=== PATIENT | female | born 1960 | race Caucasian/White ===

== ENCOUNTER 2016-12-18 09:23 | Inpatient (IN) | payer BC ==
[~2016-12-18] VITALS: Ht 152.4 cm; Wt 62.8 kg
--- NOTE | ~2016-12-18 | CON ---
PATIENT'S NAME: YVON ZIMMERMAN [facility] AGE: 56 Y [address] ROOM: [place] [address] LOCATION: [facility] ADMIT DATE: 12/18/2016 Consultation DISCHARGE DATE: FAMILY PHYSICIAN: Carlton Lopes MD ATTENDING PHYSICIAN: MADDISON AGUILAR DATE OF CONSULTATION: 12/18/2016 [facility] Nephrology Consultation. REASON FOR CONSULTATION: End-stage renal disease, on CCPD. HISTORY OF PRESENT ILLNESS: This is a 56-year-old female patient, who has a history of end-stage renal disease secondary to diabetic nephropathy, who is on CCPD as an outpatient. The patient did have a reported fall in December 02, 2016, in which she did sustain an injury to her pelvis. The patient has been following her care at [facility] and was found to have multiple fractures of the pelvis as well as sacrum. The patient has been having a hard time with pain control as an outpatient, and did present to the emergency room today secondary to her increasing pain within the pelvis as well as the right buttock area. The patient does have a history of end-stage renal disease, and was started on hemodialysis therapy in May 2016. She did transition to peritoneal dialysis in early 2016. At that time, her compliance with peritoneal dialysis has been questionable. Her recent adequacy was found to be 1 as well as a rising creatinine. The patient has been noncompliant with her education as well as her follow ups for her PD. Therefore, due to the patient's history of CCPD and end-stage renal disease, Dr. Adams has been asked to consult on her for management of her dialysis while she is hospitalized. ALLERGIES: NONE TO MEDICATION. MEDICATIONS: Current home medications include: 1. Levothyroxine 100 mcg daily. 2. Lasix 80 mg two tablets daily. 3. NovoLog FlexPen. 4. Aspirin 81 mg daily. 5. Combigan eye drops one drop ophthalmic twice a day. 6. Ocuvite one tablet daily. 7. Vitamin D3 of 2000 units daily. PATIENT'S NAME: YVON ZIMMERMAN [facility] AGE: 56 Y [address] ROOM: [address] [address] LOCATION: [facility] ADMIT DATE: 12/18/2016 Consultation DISCHARGE DATE: FAMILY PHYSICIAN: Carlton Lopes MD ATTENDING PHYSICIAN: MADDISON AGUILAR 8. Calcium carbonate/Mag oxide/zinc one tablet daily. 9. Amlodipine 5 mg daily. 10. Levemir 12 units subcutaneously every morning and 7 units subcutaneously every evening. 11. Renvela 1600 mg p.o. t.i.d. 12. Magnesium 250 mg p.o. daily. 13. Losartan 50 mg p.o. twice a day. 14. Percocet 5/325 one tablet p.o. q.4 h. p.r.n. pain. PAST MEDICAL HISTORY: As listed above including, 1. Type 1 diabetes, on insulin pump. 2. End-stage renal disease. 3. Diabetic nephropathy. 4. Hypothyroidism. 5. Renovascular hypertension. 6. Osteoporosis. FAMILY HISTORY: Reviewed and is noncontributory. There is no history of kidney disease or dialysis. SOCIAL HISTORY: The patient denies any smoking or alcohol use. Denies any illicit drug use. She does live with her family in [place]. She does continue to work despite dialysis. REVIEW OF SYSTEMS: GENERAL: Denies any new fevers, chills, or night sweats. EYES: No double vision or blurred vision. NOSE: No epistaxis or rhinorrhea. MOUTH: No gingival bleeding. THROAT: No sore throat, hoarseness, or cough. RESPIRATORY: Denies any wheezing or hemoptysis. CARDIOVASCULAR: Denies any chest pain or palpitations. GASTROINTESTINAL: Denies any nausea, vomiting, or diarrhea. She does complain of some loss of appetite. GENITOURINARY: Continues to make urine despite dialysis. MUSCULOSKELETAL: See HPI. NEUROLOGICAL: No new numbness or tingling in the upper or lower extremities. HEMATOLOGICAL: No bruising or easy bleeding. PSYCHIATRIC: Denies history of depression or anxiety. PHYSICAL EXAMINATION: VITAL SIGNS: Blood pressure is 156/71, heart rate 67, respirations 14, PATIENT'S NAME: YVON ZIMMERMAN [facility] AGE: 56 Y [address] ROOM: [address] [place] [id number] LOCATION: [facility] ADMIT DATE: 12/18/2016 Consultation DISCHARGE DATE: FAMILY PHYSICIAN: Carlton Lopes MD ATTENDING PHYSICIAN: MADDISON AGUILAR temperature is 98.1, and saturations are 97% on room air. GENERAL: On exam, this is an alert and oriented, white female, who is in no acute distress. HEENT: Head: Normocephalic and atraumatic. Eyes: Pupils are equal and react briskly to light and accommodation. Nose is midline. Mouth: No gingival bleeding. Throat is without lymphadenopathy or carotid bruits. NECK: Soft and supple. CARDIOVASCULAR: Regular rate and rhythm with no appreciable murmurs, rubs, or thrills. ABDOMEN: Soft, nontender, and nondistended. Bowel sounds are positive. RESPIRATORY: Lungs sounds are clear to auscultation anterior and posterior. The patient is on room air. EXTREMITIES: Show no signs of peripheral edema, clubbing, or cyanosis. NEUROLOGICAL: Cranial nerves 2 through 12 are grossly intact. GENITOURINARY: A Novoa catheter is present. LABORATORY DATA AND IMAGING DATA: Sodium 130, potassium 5.6, chloride 94, CO2 is 21, BUN is 106, creatinine 16.2, and glucose is 57. CT of the pelvis without contrast, does note multiple pelvic fractures including sacral insufficiency fractures, left superior and inferior pubic ramus fractures, and compression fractures at L4 and L5. There are also noted changes of previous right hip pinning present. ASSESSMENT AND PLAN: 1. End-stage renal disease, on continuous cycling peritoneal dialysis. We will obtain the patient's outpatient clinical record and provide peritoneal dialysis accordingly. At this time, Dr. Adams does recommend to 1.7 L fill volume x4 cycles. We will continue to monitor her throughout therapy. 2. Hyperphosphatemia. This is likely secondary to end-stage renal disease with noncompliance. We will initiate the patient's phosphorus binders and monitor her phosphorus closely while she is hospitalized. We did encourage her to take this with food. 3. Pelvic fractures. Orthopedic Surgery has been consulted. Dr. Romero will be available later this evening for further recommendations. Pain management at this time. 4. This patient has been seen and assessed by Dr. Adams. Her care has been conducted in consultation with Dr. Adams as well as me. We will plan further recommendations as they are forthcoming. In the interim, the patient will initiate continuous cycling peritoneal dialysis later this evening. PATIENT'S NAME: YVON ZIMMERMAN [facility] AGE: 56 Y [address] ROOM: [id number] [place], [place] [address] LOCATION: [facility] ADMIT DATE: 12/18/2016 Consultation DISCHARGE DATE: FAMILY PHYSICIAN: Carlton Lopes MD ATTENDING PHYSICIAN: MADDISON AGUILAR MILI MASTERS DNP, TEST SPECIALIST FOR M MD JACQUELINE SINCLAIR/modl /[id number] d: 12/19/16 1354 t: 01/05/17 1039, CONSULTATION REPORT
--- NOTE | ~2016-12-18 | DS ---
PATIENT'S NAME: YVON ZIMMERMAN [facility] AGE: 56 Y [address] ROOM: [address] [address] LOCATION: [facility] ADMIT DATE: 12/18/2016 Discharge Summary DISCHARGE DATE: 01/01/2017 FAMILY PHYSICIAN: Carlton Lopes MD ATTENDING PHYSICIAN: Bryn Mesa FINAL DIAGNOSES: 1. Pelvic fracture with intractable pain. 2. End-stage renal disease, conversion from peritoneal dialysis to hemodialysis. 3. Insulin-dependent diabetes with labile control. 4. Essential hypertension. 5. Anorexia. 6. Vitamin D deficiency. 7. Primary hypothyroidism. 8. Sepsis, secondary to unknown source. HISTORY OF PRESENT ILLNESS: The patient was admitted to the hospital after being found to have a pelvic fracture with inadequate pain control. The patient was admitted to [facility] and was seen in consultation by Dr. Obinna Francis. LABORATORY DATA: On admission, sodium 130, got as low as 124 on the , discharge 132; potassium on admission was 4.7, at discharge 4.7; CO2 on admission was 21, got as low as 18 on December 24, at discharge was 23; BUN on admission was 106, at discharge 60; creatinine on admission was 16.2, discharge 9.2. Liver enzymes on admission were normal. Magnesium at admit 3.8, most prior to discharge 3. Hemoglobin A1c on December 18 was 6.5. TSH on December 18 was 64.3. White blood cell count on admission was 18.4, got as high as 21.3, discharge 16.4, hemoglobin on admission was 11.2, most prior to discharge was 9.3, platelet count on admission was 520, discharge 344. Procalcitonin on admission was 1.72 and increased to 2.32 the next day. MICROBIOLOGY DATA: Blood and urine culture were all negative. X-RAY DATA: Chest x-ray on admission was negative for an acute pneumonia or chronic changes. CT scan of the pelvis on admission showed multiple pelvic fractures including sacral insufficiency fractures, left superior and inferior pubic rami fractures, and compression fracture at L4 and 5. Two-way abdominal film on the did not show any evidence of perforation and showed a nonspecific bowel gas pattern. HOSPITAL COURSE: The patient was admitted with a diagnosis of severe abdominal pain that was felt to be secondary to her pelvic fracture. She also had an elevated white blood cell count. After admission, this was followed and PATIENT'S NAME: YVON ZIMMERMAN [facility] AGE: 56 Y [address] ROOM: [id number] [place], [place] [address] LOCATION: [facility] ADMIT DATE: 12/18/2016 Discharge Summary DISCHARGE DATE: 01/01/2017 FAMILY PHYSICIAN: Carlton Lopes MD ATTENDING PHYSICIAN: Bryn Mesa worked up. She was started on IV Zosyn and vancomycin for concern about sepsis and with her having a peritoneal dialysis catheter, there was concern that there may be infection within the peritoneal fluid. She was seen by the hoop bender tank as she was an end-stage dialysis patient on peritoneal dialysis. Her blood sugars were highly labile, she was quite hyperglycemic on admission, and did require sliding scale insulin then she became quite hypotensive and then required D50. She was seen and evaluated by Dr. Obinna Francis. He did feel that she had pelvic fractures, a vitamin D level was obtained, which did eventually returned low, and she was started on replacement. Dr. Adams did see her and did make adjustments with her chronic medications. We did attempt to make adjustments with her blood sugars. Due to the intense pain, her intake was labile, she did receive IV doses of diuretics to try and mobilize more fluid. A carb count was added to try and control her blood sugars. Her vitamin D level returned low and she was started on vitamin D replacement. We did have issue with pain control. There was some concern about how best to control this and we did eventually started on a Duragesic patch. This was increased because as her pain was not controlled and she was given Valium to help with muscle spasm at night; unfortunately, she became very lethargic with this and those had to be stopped and Duragesic patch dose was lowered. She did have significant constipation, we tried medications to help control her constipation, she did receive a total of IV antibiotics for 7 days. All the workup initially done at admit was negative and we were able to slowly restart some of her medications. Again, her blood sugars remained very labile and her oral intake was very inconsistent. She would have to have D50 at night because she would drop so low we eventually stopped all the Levemir, disuse sliding scale insulin until the night prior to discharge when her blood sugars remained greater than 180 and she did get into the 480s. Decision was made that we could send her home with a lower dose of Levemir. During the hospital stay, at that time, she would refuse one of the exchanges for her dialysis. She did have a lot of problems with nausea, vomiting, and anorexia. The hoop bender tank did feel that she was not given adequate dialysis and a temporary line was placed and she was started on hemodialysis. She received her 1st hemodialysis on the . The plan was for her to be discharged on the , but unfortunately the night prior her blood sugars had got into the 20s and she required 4 amps of D50. She was monitored again overnight and received dialysis on the . Her blood sugars remained more stable and we actually were able to give her a dose of Levemir. There was a lot of discussion with the family regarding how they were going to need to monitor her and need to really make sure that she was continuing to eat. DISCHARGE INSTRUCTIONS: She is discharged to home on a diabetic renal diet. She is to see Dr. Lopes in 1 week. She is due for dialysis on Friday, , and Friday at noon. PATIENT'S NAME: YVON ZIMMERMAN [facility] AGE: 56 Y [address] ROOM: [address] [address] LOCATION: [facility] ADMIT DATE: 12/18/2016 Discharge Summary DISCHARGE DATE: 01/01/2017 FAMILY PHYSICIAN: Carlton Lpoes MD ATTENDING PHYSICIAN: Bryn Mesa MEDICATIONS: 1. Amlodipine 5 mg daily. 2. Duragesic patch 12 mcg every 72 hours. 3. Lasix 80 mg 2 pills in the morning. 4. Aspirin 325 mg daily, this dose was adjusted for DVT prophylaxis. 5. Synthroid 125 mcg daily, which is a dose change. 6. NovoLog 1 unit per 15 g 3 times daily with meals. 7. Cozaar 50 mg twice daily. 8. MiraLAX 17 g daily. 9. Renvela 2400 mg 3 times daily with meals. 10. Vitamin D 50,000 units weekly. Her last dose will be on January 28. 11. Percocet 1 to 2 every 4 hours as needed for pain. 12. Vitamin D 2000 units daily. 13. Calcium 1 tablet daily. 14. Levemir 6 units at bedtime. 15. Magnesium was stopped. 16. NovoLog 2 units subcutaneous at mealtime for blood sugars greater than 250. She was advised not to use any correction NovoLog at bedtime. 17. Pepcid 20 mg daily. 18. The patient was placed on the full-dose aspirin for DVT prophylaxis and then put on Pepcid to help prevent any stomach issue. I did attempt to contact Dr. Lopes, but he was out of the office today, I will ask that he call me when he returns. PROGNOSIS: Overall, prognosis at discharge is fair. JEAN CLAUDE DIAZ MD LAW/modl /[id number] CC: MD Rogelio Amaya MD d: 01/02/17 0221 t: 01/09/17 1820, DISCHARGE SUMMARY
--- NOTE | ~2016-12-18 | CON ---
PATIENT'S NAME: YVON CALLOWAY [facility] AGE: 56 Y [address] ROOM: [address] [place], [place] [address] LOCATION: [facility] [place] ADMIT DATE: 12/18/2016 Consultation DISCHARGE DATE: FAMILY PHYSICIAN: Carlton Lopes MD ATTENDING PHYSICIAN: MADDISON AGUILAR DATE OF CONSULTATION: 12/18/2016 TIME SEEN: 11 p.m. Consultation on Ms. Calloway at the request of Dr. Romero. HISTORY OF PRESENT ILLNESS: Ms. Calloway is a 56-year-old white female, diabetic, had renal failure, known to have osteoporosis. Reports on December 02, 2016, was involved in an incident in the parking lot at the [employer] in [place], injury to the pelvis. Had worked up at [facility], was found to have fractures about the pelvis and sacrum including bilateral sacral ala fractures and left pubic rami fractures. Initially did okay at home, but then the pain has increased over the last week, and again presents to the emergency room with increasing pain about the pelvis and especially about the right buttocks. CT scan today again showed bilateral sacral ala fractures, left-sided pubic rami fractures perhaps some destruction of the cortex, and also age indeterminate compression fractures of the lumbar 4 and lumbar 5. Denies back pain at this time. Takes calcium and vitamin D3 for her osteoporosis. MEDICATIONS: See list. ALLERGIES: NONE KNOWN. PAST MEDICAL HISTORY: Diabetes, renal failure, hypothyroidism, hypertension, and osteoporosis. REVIEW OF SYSTEMS: As above. FAMILY MEDICAL HISTORY: Remarkable for cancer. PERSONAL SOCIAL HISTORY: Does not smoke or drink. No drug abuse. . Lives with her family in [place]. Works second time worker. Modified work in a sitting position. PATIENT'S NAME: YVON CALLOWAY [facility] AGE: 56 Y [address] ROOM: [address] [address] LOCATION: [facility] [place] ADMIT DATE: 12/18/2016 Consultation DISCHARGE DATE: FAMILY PHYSICIAN: Carlton Lopes MD ATTENDING PHYSICIAN: MADDISON AGUILAR PHYSICAL EXAMINATION: GENERAL: White female, mild distress. HEENT: Hears and sees. NECK: Nontender. BACK: Nontender. HEART: Pulse rate is regular. LUNGS: Able to take in a deep breath. ABDOMEN: Benign. MUSCULOSKELETAL: Tenderness about the right iliotibial band. Tenderness about the SI joints, right-sided graded more than the left side. Tenderness about the left anterior pelvis. NEUROLOGIC: Stocking numbness in bilateral lower extremities. Good strength in the feet. Distal pulses palpable. No calf pain. Negative Homans. INTEGUMENT: Intact. IMAGING: CT scan was reviewed, shows bilateral sacral ala fractures, fractures of the left pubic rami perhaps some destruction of the cortex, hips without arthritic changes, fixation in the right hip in good position, minimal heterotopic ossification about the proximal tip of the nail, there has been minimal sliding compression of the helical blade and there is no prominence of the base of the blade at the iliotibial band, also there is age-indeterminate fracturing of the endplates of lumbar 4 and lumbar 5. ASSESSMENT AND PLAN: Fractures of the sacrum and the pelvis began with an injury at the [employer]. These are low-energy type injuries and would be expected to heal without surgical intervention. Does not appear that the compression fractures at the lumbar 4 and lumbar 5 were symptomatic at this time. With a question of perhaps some expansion of the cortex or even destruction of the cortex of the left pubic rami, we will do a serum protein electrophoresis and a sedimentation rate. We will keep at bedrest until comfortable, turned every 2 hours to avoid complications, up to a chair when comfortable, and will begin weightbearing when also comfortable. Surgery is not expected to be required. GIBRAN BRODY MD DPM/jessica /[id number] d: 12/19/16 0314 t: 12/24/16 1149, CONSULTATION REPORT
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
[~2016-12-18 09:23] MED LIST: ALDACTONE25 MG PO; CALCIUM-MAGNES1 EAC3 PO; CATAPRES0.1 MG PO; CLARITIN10 MG PO; COMBIGAN 0.25 ML/BOT OPHTH; COQ-10100 MG PO; ECOTRIN325 MG PO; LASIX80 MG PO; LEVEMIR FL100 UNIT/1 SUB-Q; LEVOTHROID (S125 MCG PO; MAGNESIUM250 M1 PO; NORCO 5-325 TA1 EACH PO; NORVASC5 MG PO; NOVOLOG FL100 UNIT/1 SUB-Q; OCUVITE WITH L1 EACH PO; RENVELA800 MG PO; VITAMIN D350000 UNIT PO
[2016-12-18] MEDS ORDERED: COZAAR25 MG PO (15:23)
[2016-12-18] MEDS ORDERED: PERCOCET 5-3251 EACH PO (15:24)
--- NOTE | 2016-12-18 15:39 | NUR ---
DIABETES CONSULT: Received a phone call from nursing requesting a consult after the patient was found to have an insulin pump in her personal belongings bag. The patient has a history of diabetes and renal disease. In talking with the patient she reports that she hasn't been on her insulin pump "in a long time". She indicates that she takes Levemir and Novolog via insulin pens. Nursing staff reported that pump and insulin pens were placed in her belongings bag in the med room. The patient is somewhat confused. She indicated using Novolog correction scale with meals. When asked at what blood glucose level does she start giving Novolog she states " I take 12 units in the morning and 7 units at night". I clarified and asked the patient if she takes 12 units of LEVEMIR in the morning and 7 units of Levemir at night. The patient reports "yes" and indicates her last dose of Levemir was at 0700 today. Blood gluocose monitoring is ordered every 4 hours. Her blood glucose at 1457 was 123 and well controlled. Will continue to follow and have the CDE visit the patient to assess educational needs when appropriate.
--- NOTE | 2016-12-18 16:22 | NUR ---
56 Y/O FEMALE ADMITTED FOR PAIN CONTROL. PT FELL ON 12/02/16 AND THEN AGAIN ABOUT 1 WEEK LATER AND NOW HAS A LUMBAR FRACTURE, RT SACRAL FRACTURE AND LT PUBIC BONE FRACTURE. PT STATES THAT HER HAS BEEN PUSHING HER AROUND IN A WHEELCHAIR SINCE HER FALL ON THE . [facility] MEDICAL & SURGICAL HISTORY - C/SECTION X1, RT HIP PINNING, NEEDLE BIOPSY OF RT KIDNEY, BILAT CATARACT W/ IOLI, COLON RESECTION, GLAUCOMA, HTN, CKD, ANEMIA, DMI, THYROID DISEASE. PT HAS EXTREME DIFFICULTY FINDING HER WORDS & REMEMBERING THINGS. REPORT GIVEN TO PT PRIMARY CARE NURSE CHARISMA RYAN
--- NOTE | 2016-12-18 17:03 | NUR ---
Significant Event: Patient is a 56 year old female who is confused at times and forgetful, tries to get the thought out, but cannot always get it out. ESRD so has PD every HS. Orders to run tonight, dialysis aware as well as . Accuchecks every 4 hours- is a type I diabetic- last checked at 1500, next check at 1900. Bedrest until the orthopedic surgeon sees. SCDS. IV to the L)hand, SL. PD cath to the left abdomen. Very tired and drowsy when arriving to the floor and throughout the afternoon. Full code. Diabetic diet. Cooperative with cares.
[2016-12-18 17:10] LABS: BASOPHIL # 0.1 K/uL (0.0-0.2); BASOPHIL % 0.3 %; EOSINOPHIL # 0.1 K/uL (0.0-0.5); EOSINOPHIL % 0.5 %; HEMATOCRIT 33.7 % (33.0-46.0); HEMOGLOBIN 11.2 g/dL (10.0-15.0); IMMATURE GRANULOCYTE # 0.1 K/uL (0.0-0.3); IMMATURE GRANULOCYTE % 0.5 %; LYMPHOCYTE # 1.5 K/uL (0.8-4.0); LYMPHOCYTE % 8.2 %; MCH 28.1 pg (27.0-34.0); MCHC 33.2 gm/dL (32.0-36.5); MCV 84.7 fl (83.0-98.0); MONOCYTE # 1.3 K/uL (0.0-1.0); MONOCYTE % 6.8 %; MPV 9.6 fl (9.4-12.4); NEUTROPHIL # (ANC) 15.4 K/uL (1.8-7.8); NEUTROPHIL % 83.7 %; NRBC % 0 /100WBC (0-0.00); PLATELET COUNT 520 K/uL (150-450); RDW-CV 13.7 % (11.9-14.6)
[2016-12-18 17:12] LABS: INR - (THERAPEUTIC) 0.96 (0.92-1.07); PROTIME 10.1 SECONDS (9.8-11.4); PTT 32 SECONDS (25-32); RBC 3.98 M/uL (3.50-5.50); WBC 18.4 K/uL (4.0-11.0)
[2016-12-18 17:20] LABS: ALBUMIN 2.7 gm/dL (3.5-5.0); ANION GAP 20.6 (10.0-19.0); CALCIUM 11.8 mg/dL (8.5-10.5); CREATININE 16.2 mg/dL (0.5-1.1); MAGNESIUM 3.8 mg/dL (1.8-2.6); POTASSIUM 5.6 mMol/L (3.7-5.1); TOTAL BILIRUBIN 0.3 mg/dL (0.0-1.5); TOTAL PROTEIN 7.3 g/dL (6.0-8.4)
[2016-12-18 17:25] LABS: PHOSPHORUS 8.4 mg/dL (2.5-4.9)
[2016-12-18 20:29] LABS: BILIRUBIN URINE NEGATIVE (NEGATIVE); BLOOD URINE NEGATIVE /UL (NEGATIVE); COLOR URINE YELLOW (YELLOW); GLUCOSE URINE 250 mg/dL (NEGATIVE); KETONE URINE 5 mg/dL (NEGATIVE); LEUKOCYTES URINE NEGATIVE /UL (NEGATIVE); NITRITE URINE NEGATIVE (NEGATIVE); PROTEIN URINE 500 mg/dL (NEGATIVE); SPEC GRAVITY URINE 1.015 (1.003-1.035); TURBIDITY URINE CLEAR (CLEAR); UROBILINOGEN URINE NORMAL (NORMAL)
[2016-12-18 20:46] LABS: BACTERIA URINE RARE (NEGATIVE); EPITHELIAL URINE 0-2 #/HPF (NEGATIVE)
[2016-12-18 20:47] LABS: AMORPHOUS URINE 3+ (NEGATIVE); MUCUS URINE 1+ (NEGATIVE); RBC URINE RARE #/HPF (NEGATIVE)
--- NOTE | 2016-12-19 03:48 | NUR ---
Significant Event: Alert/oriented x3. Day shift reported she was confused at times and forgetful, no problems with that this shift. Patient stated she "doen't feel as loopy." End stage renal disease, has peritoneal dialysis every HS. 2 formed stools, moderate amount. Novoa catheter - 375 mls out dark yellow urine. Bedrest continues, Dr Mick Francis did write order for up to chair when comfortable. Pain 6-8/10 throughout shift - controlled effectively with Percocet 1 tablet at 1857, 2311, 0252, sleeping when reassessed each time. Accuchecks Q4H, next is at 0700. Mild sliding scale - at 1900 was 60, Dr Mesa notified. Did another accucheck per order at 1950 - 95, Dr Mesa asked to notify Dr Zimmerman the 2300 accucheck. At 2300 - 114, no insulin per Dr Zimmerman, at 0300 - 255, 4 units Novolog administered per mild sliding scale. IV to left hand, saline locked. VSS, systolc in 150s, low 160s. Bruising generalized, nick in left upper arm. Bilateral foot pumps on. Follow up:
[2016-12-19 05:40] LABS: ALBUMIN 2.4 gm/dL (3.5-5.0); ANION GAP 20.7 (10.0-19.0); CALCIUM 10.7 mg/dL (8.5-10.5); PHOSPHORUS 8.8 mg/dL (2.5-4.9); POTASSIUM 4.7 mMol/L (3.7-5.1)
[2016-12-19 08:11] LABS: BASOPHIL # 0.1 K/uL (0.0-0.2); BASOPHIL % 0.3 %; EOSINOPHIL # 0.4 K/uL (0.0-0.5); EOSINOPHIL % 1.8 %; HEMATOCRIT 34.2 % (33.0-46.0); HEMOGLOBIN 11.5 g/dL (10.0-15.0); IMMATURE GRANULOCYTE # 0.1 K/uL (0.0-0.3); IMMATURE GRANULOCYTE % 0.6 %; LYMPHOCYTE # 1.2 K/uL (0.8-4.0); LYMPHOCYTE % 5.7 %; MCH 28.4 pg (27.0-34.0); MCHC 33.6 gm/dL (32.0-36.5); MCV 84.4 fl (83.0-98.0); MONOCYTE # 1.4 K/uL (0.0-1.0); MONOCYTE % 6.7 %; MPV 9.6 fl (9.4-12.4); NEUTROPHIL # (ANC) 18.1 K/uL (1.8-7.8); NEUTROPHIL % 84.9 %; NRBC % 0 /100WBC (0-0.00); PLATELET COUNT 577 K/uL (150-450); RBC 4.05 M/uL (3.50-5.50); RDW-CV 13.6 % (11.9-14.6); WBC 21.3 K/uL (4.0-11.0)
[2016-12-19 08:20] LABS: CALCIUM 10.8 mg/dL (8.5-10.5); PHOSPHORUS 8.5 mg/dL (2.5-4.9)
[2016-12-19 08:28] LABS: CREATININE 14.8 mg/dL (0.5-1.1); MAGNESIUM 3.4 mg/dL (1.8-2.6)
[2016-12-19 08:32] LABS: PERITONEAL FLUID TURBIDITY CLEAR (CLEAR)
[2016-12-19 10:54] LABS: % PERITONEAL FLUID MONO/MACRO 40 % (0-0); % PERITONEAL FLUID NEUT 47 % (0-25)
--- NOTE | 2016-12-19 13:12 | NUR ---
Met with patient, , and son at bedside today. Introduced myself and SW Compliance Review Specialist Kavita. Explained our role with the CM department and assisting with discharge planning. Patient came from home. Up to this hospitalization she was doing well with caring for herself at home. She continues to work at the [employer]. She has a walker and wheelchair at home and grab bars for the toilet. She does not have a toilet riser or shower bench. She is able to use her walker and/or wheelchair at work. She no longer drives but her spouse and son take care of her transportation needs. At this time her only concern is managing the right leg pain. She denies any other concerns regarding discharge. Will continue to follow and offer supports as needed.
--- NOTE | 2016-12-19 13:53 | NUR ---
Diabetes center note: 0900 Visited with patient briefly and patient states she thinks that she is getting along with her diabetes "ok". Has several family members in the room at the time of visit, will return later to assess educational needs. Patient states she is planning to have on-going assistance with her diabetes with Dr. Lopes in [place] after dismissal 1330 Current A1C on 12.18.16 qwas 6.5 % Provided the Diabetes Management Booklet and Survival Skills checklist and encouraged patient to complete. Patient at this time denies any concerns related to diabetes, states she will not ever go back on her insulin pump. Patient states she has to take an important phone call at this time, will continue to follow up on 12/20/16.
--- NOTE | 2016-12-19 15:07 | NUR ---
Significant Event: Patient alert and oriented. Vital signs stable, BP in the 160s/70s. Room air. IV to R) posterior forearm saline locked. Q4HR Accuchecks. Bedrest, can get up to chair when comfortable, order received for PT/OT today. Pain rated between 6-8. Percocet 1 tab Q4HR available PRN. Patient on peritoneal dialysis. Novoa catheter. Received bag bath at 1440. Intermittent antibiotics. Follow Up: Out of bed. Continue to monitor.
--- NOTE | 2016-12-19 19:02 | NUR ---
I HAVE REVIEWED AND AGREE WITH CHARTING COMPLETED BY [facility] STUDENT FIORDALIZA AGUILAR FROM [phone] NEIL RYAN
[2016-12-20 04:08] LABS: BASOPHIL # 0.1 K/uL (0.0-0.2); BASOPHIL % 0.2 %; EOSINOPHIL # 0.4 K/uL (0.0-0.5); EOSINOPHIL % 1.7 %; HEMATOCRIT 32.4 % (33.0-46.0); HEMOGLOBIN 10.6 g/dL (10.0-15.0); IMMATURE GRANULOCYTE # 0.1 K/uL (0.0-0.3); IMMATURE GRANULOCYTE % 0.6 %; LYMPHOCYTE # 0.9 K/uL (0.8-4.0); LYMPHOCYTE % 4.1 %; MCH 27.7 pg (27.0-34.0); MCHC 32.7 gm/dL (32.0-36.5); MCV 84.6 fl (83.0-98.0); MONOCYTE # 1.5 K/uL (0.0-1.0); MONOCYTE % 7.1 %; MPV 9.5 fl (9.4-12.4); NEUTROPHIL # (ANC) 17.8 K/uL (1.8-7.8); NEUTROPHIL % 86.3 %; NRBC % 0 /100WBC (0-0.00); PLATELET COUNT 503 K/uL (150-450); RBC 3.83 M/uL (3.50-5.50); RDW-CV 13.8 % (11.9-14.6)
[2016-12-20 04:13] LABS: WBC 20.7 K/uL (4.0-11.0)
--- NOTE | 2016-12-20 04:17 | NUR ---
Patient is alert and can appear slightly confused at times, will need daily weight done once disconected from dialysis, is on bed rest pain has be under control tonight did have one percocet around 0139, has been slightly restless tired of being in bed, blood glucose was 125 at 1900, at 2300 blood glucose was 438 notified [facility] order to give 14units of novolog, rechecked an hour after administering BG was 408 gave another 10units of novolog, at 0230 BG was 300 gave the scheduled 4units of novolog for 0300, next check is at 0700, patient didnt have any c/o or s/s related to high BG, did have zosyn tonight and also dialysis was done, is to start working with physical theraphy
[2016-12-20 04:26] LABS: ALBUMIN 2.4 gm/dL (3.5-5.0); ANION GAP 19.3 (10.0-19.0); CALCIUM 10.3 mg/dL (8.5-10.5); POTASSIUM 4.3 mMol/L (3.7-5.1); TOTAL BILIRUBIN 0.3 mg/dL (0.0-1.5); TOTAL PROTEIN 6.7 g/dL (6.0-8.4)
--- NOTE | 2016-12-20 14:07 | NUR ---
Diabetes center note: 1400 Patient is working on completing the Diabetes Assessment form. At this time patient denies needing an on-going education. Current A1C was 6.5 % on 12/18/16 and states she does get all of her supplies that she needs to check her blood sugars. Offered out-patient services, but declines this offer at this time.
--- NOTE | 2016-12-20 16:20 | NUR ---
Significant Event: PT AO. VSS ON RA, AFEBRILE. UP TO CHAIR WITH 1PA PIVOT, GAITBELT. ENCOURAGED PT TO USE BSC INSTEAD OF BEDPAN. HAD 2 SMALL, PEBBLE LIKE STOOLS. PERITONEAL DIALYSIS CATHETER, RUNS OVERNIGHT. IV TO R FA, GOOD BLOOD RETURN. CONTINUES ON IV ABX. ACCUCHECKS Q 4 HR. WAS 35 THIS AM, TREATED AND RECHECK WAS 49, MD NOTIFIED AND TREATED AGAIN. RECHECK WAS 263, 1100 WAS 377, 1500 WAS 207. RESTARTED HOME DOSE LEVEMIR. PRN PERCOCET X2, LAST AT 1318. PT IS STRICT I/O DAILY WT. HIGGINS PATENT Follow up: CONTINUE TO MONITOR
--- NOTE | 2016-12-21 04:22 | NUR ---
Significant Event: AAOX3. [place] DIET, WITH Q4 HOUR ACCUCHECKS. IPA, PIVOT TO CHAIR/BSC. HIGGINS CATHETER IN PLACE AND PATENT. PD CATHETER IN PLACE. PT C/O ABD DISTENTION, AND PRESSURE. KEEP PT ON PD, AND TRY TO MOVE BOWELS; PER ON-CALL DIALYSIS NURSE. PERCOCET ADMINISTERED X1, LAST AT 0212. 1900 BS: 161. 2300 BS: 423 (MD ORDERED: 12 U INSULIN, RECHECK BG IN 1 HOUR.) 0050: 515 (MD ORDERED: 8 U INSULIN, RECHECK IN 1 HOUR.) 0215: 384 (MD ORDER: DO NOT CORRECT, RECHECK AT 0600.) PT HAD IV ZOSYN, NO VANCO ADMINISTERED. PT ATTEMPTED TO MOVE BOWELS, WAS UNSUCCESSFUL. Follow up: BG, PAIN, BM'S
[2016-12-21 04:59] LABS: BASOPHIL # 0.1 K/uL (0.0-0.2); BASOPHIL % 0.3 %; EOSINOPHIL # 0.3 K/uL (0.0-0.5); EOSINOPHIL % 1.4 %; HEMATOCRIT 32.3 % (33.0-46.0); HEMOGLOBIN 10.9 g/dL (10.0-15.0); IMMATURE GRANULOCYTE # 0.1 K/uL (0.0-0.3); IMMATURE GRANULOCYTE % 0.5 %; LYMPHOCYTE # 0.9 K/uL (0.8-4.0); LYMPHOCYTE % 4.5 %; MCH 28.3 pg (27.0-34.0); MCHC 33.7 gm/dL (32.0-36.5); MCV 83.9 fl (83.0-98.0); MONOCYTE # 1.7 K/uL (0.0-1.0); MPV 9.9 fl (9.4-12.4); NEUTROPHIL # (ANC) 16.2 K/uL (1.8-7.8); NEUTROPHIL % 84.3 %; NRBC % 0 /100WBC (0-0.00); PLATELET COUNT 440 K/uL (150-450); RBC 3.85 M/uL (3.50-5.50); RDW-CV 13.7 % (11.9-14.6)
[2016-12-21 05:16] LABS: WBC 19.2 K/uL (4.0-11.0)
[2016-12-21 05:30] LABS: ANION GAP 21.1 (10.0-19.0); CALCIUM 9.5 mg/dL (8.5-10.5); POTASSIUM 4.1 mMol/L (3.7-5.1)
[2016-12-21 05:31] LABS: MAGNESIUM 3.2 mg/dL (1.8-2.6)
--- NOTE | 2016-12-21 19:13 | NUR ---
AAOx3. Cooperative with cares. Up with 1 assist, GB, walker and slow unsteady gait. Up to chair this afternoon also. Tolerating very small amounts of [place] diet. Gave Glucose tabs x2 today and D50 IV x1. BS Q4hrs. Peritoneal dialysis in room. IV to LH s/l'd w/intermittent Abx.
--- NOTE | 2016-12-22 03:54 | NUR ---
Significant Event: Patient sat on the edge of the bed a couple of times. 1 Percocet given at 1932, and again at 022 for back and right lower leg and hip pain. Alert and orientated. Accuchecks were q 4hrs and new orders for the night to hold any insulin. Restart in am, Dr will reevaluate depending on how patient does through the night. Blood sugar at 2000 was 124, at 2300 it was 215 and at 0230 it was 261. Patient had a small stool. Peritoneal dialysis during the night. Follow up: Continue to monitor.
[2016-12-22 05:04] LABS: BASOPHIL # 0.1 K/uL (0.0-0.2); BASOPHIL % 0.3 %; EOSINOPHIL # 0.4 K/uL (0.0-0.5); EOSINOPHIL % 2.2 %; HEMATOCRIT 33.1 % (33.0-46.0); HEMOGLOBIN 11.1 g/dL (10.0-15.0); IMMATURE GRANULOCYTE # 0.1 K/uL (0.0-0.3); IMMATURE GRANULOCYTE % 0.5 %; LYMPHOCYTE # 0.7 K/uL (0.8-4.0); LYMPHOCYTE % 4.4 %; MCH 27.8 pg (27.0-34.0); MCHC 33.5 gm/dL (32.0-36.5); MCV 82.8 fl (83.0-98.0); MONOCYTE # 1.4 K/uL (0.0-1.0); MONOCYTE % 8.7 %; MPV 9.4 fl (9.4-12.4); NEUTROPHIL # (ANC) 13.9 K/uL (1.8-7.8); NEUTROPHIL % 83.9 %; NRBC % 0 /100WBC (0-0.00); PLATELET COUNT 394 K/uL (150-450); RDW-CV 13.9 % (11.9-14.6)
[2016-12-22 05:08] LABS: WBC 16.6 K/uL (4.0-11.0)
[2016-12-22 05:18] LABS: ALBUMIN 2.2 gm/dL (3.5-5.0); CALCIUM 8.9 mg/dL (8.5-10.5); POTASSIUM 4.8 mMol/L (3.7-5.1)
[2016-12-22 05:20] LABS: ANION GAP 18.8 (10.0-19.0); CREATININE 13.6 mg/dL (0.5-1.1)
--- NOTE | 2016-12-22 15:15 | NUR ---
AAOx3. Cooperative with cares. Up to BSC w/large BM today. Up to chair with 1assist, GB, walker and slow gait. VSS, afebrile, on RA. Has peritoneal dialysis managed by PD RN. Gave Percocet 1tab x1 for hip/leg pain w/noted relief. PIV to RFA w/intermittent Abx. Poor oral intake of [place] diet. Fluid restriction of 800ml/24hrs. BS over 400 this a.m., rechecked 2hrs later, down to 280. Per MD then used moderate SSI.
[2016-12-23 05:23] LABS: BASOPHIL # 0.1 K/uL (0.0-0.2); BASOPHIL % 0.3 %; EOSINOPHIL # 0.3 K/uL (0.0-0.5); HEMATOCRIT 33.5 % (33.0-46.0); HEMOGLOBIN 11.2 g/dL (10.0-15.0); IMMATURE GRANULOCYTE # 0.1 K/uL (0.0-0.3); IMMATURE GRANULOCYTE % 0.5 %; LYMPHOCYTE # 1.2 K/uL (0.8-4.0); LYMPHOCYTE % 6.8 %; MCHC 33.4 gm/dL (32.0-36.5); MCV 83.8 fl (83.0-98.0); MONOCYTE # 1.4 K/uL (0.0-1.0); MONOCYTE % 8.4 %; MPV 10.1 fl (9.4-12.4); NRBC % 0 /100WBC (0-0.00); PLATELET COUNT 402 K/uL (150-450); RDW-CV 13.8 % (11.9-14.6)
[2016-12-23 05:24] LABS: WBC 17.1 K/uL (4.0-11.0)
[2016-12-23 05:40] LABS: ALBUMIN 2.2 gm/dL (3.5-5.0); CALCIUM 8.6 mg/dL (8.5-10.5); PHOSPHORUS 7.2 mg/dL (2.5-4.9); POTASSIUM 4.4 mMol/L (3.7-5.1)
[2016-12-23 05:41] LABS: ANION GAP 20.4 (10.0-19.0); CREATININE 13.5 mg/dL (0.5-1.1)
--- NOTE | 2016-12-23 08:28 | NUR ---
Pt. alert and oriented x3. RA. VSS. Peritoneal dialysis. IV to R) forearm - saline locked with intermittant IV antibx. Fluid restriction of 1000ml. 1-2 assist with walker. Up to chair early AM. Ice to R) hip. Percocet every 4 hours 1 tab. Last pain at 0330. BS checks AC and PRN. Gave multiple tabs of glucose tabs. Cooperative with cares.
--- NOTE | 2016-12-23 14:27 | NUR ---
A-SCREENED D/T LOS S/P LUMBAR FX, R)SACRAL FX, L)PUBIC FX FROM A FALL. ON PERITONEAL DIALYSIS HT: 63 IN. WT: 30.5 KG. IBW: 52 KG. BMI: 23.6 LABS: NA 131, K= 4.4, GLU 47, BUN 82, CORK SLABS SAWYER 13.5, ALB 2.2, P 7.2 MEDS: PERCOCET, ZOFRAN, LEVEMIR, LASIX, RENVELA, ZOSYN, MIRALAX, SUBLIMAZE, TRANDATE INJ. DIET RX: RENAL DIET W/1000 ML FLUID RESTRICTION. PO INTAKE 25-75%. VISITED W/PT AND PT REPORTS C/O NAUSEA TODAY, BUT STATES PO INTAKE HAS BEEN "OKAY: PRIOR TO TODAY. EST NUTR NEEDS: 8034-3258 KCALS (30-35 KCALS/KG IBW) 62-78 GM PROTIEN (1.2-1.5 GM /KG IBW) FLUID PER MD D-AT NUTRITION RISK W/INADEQUATE ORAL INTAKE R/T DECREASED APPETITE SECONDARY TO PAIN AND NAUSEA AEB INTAKE RECORDS. I-START GLUCERNA BID TO PROVIDE ADDITIONAL NUTRIENTS M/E-GOAL: PO INTAKE >/=50% BY NEXT F/U 1)F/U PO INTAKE, SUPPLEMENT, AND POC IN 2-3 DAYS 2)ASSIST NEEDED
--- NOTE | 2016-12-23 17:14 | NUR ---
AAOx3. orders to use BSC, NOT bedpan. PIV to RFA s/l'd. Gave Zofran and Percocet today with some relief. Emesis after attempting bfast, refused lunch. Gave Glucagon @1045 for BS44. Recheck 92. Peritoneal dialysis managed by PD RN. C/O hip pain moderately controlled by pain meds and ice. Needs much encouragement to move, use BSC, chair, and ambulate (8ft today w/PT).
[2016-12-24 04:32] LABS: BASOPHIL # 0.1 K/uL (0.0-0.2); BASOPHIL % 0.4 %; EOSINOPHIL # 0.2 K/uL (0.0-0.5); EOSINOPHIL % 1.4 %; HEMATOCRIT 32.5 % (33.0-46.0); HEMOGLOBIN 10.8 g/dL (10.0-15.0); IMMATURE GRANULOCYTE # 0.1 K/uL (0.0-0.3); IMMATURE GRANULOCYTE % 0.4 %; LYMPHOCYTE # 0.7 K/uL (0.8-4.0); LYMPHOCYTE % 4.6 %; MCH 27.9 pg (27.0-34.0); MCHC 33.2 gm/dL (32.0-36.5); MONOCYTE # 1.3 K/uL (0.0-1.0); MONOCYTE % 8.3 %; MPV 9.6 fl (9.4-12.4); NEUTROPHIL # (ANC) 13.5 K/uL (1.8-7.8); NEUTROPHIL % 84.9 %; NRBC % 0 /100WBC (0-0.00); PLATELET COUNT 377 K/uL (150-450); RBC 3.87 M/uL (3.50-5.50); RDW-CV 14.1 % (11.9-14.6)
[2016-12-24 04:57] LABS: ALBUMIN 2.3 gm/dL (3.5-5.0); ANION GAP 21.6 (10.0-19.0); CALCIUM 8.5 mg/dL (8.5-10.5); PHOSPHORUS 8.1 mg/dL (2.5-4.9); POTASSIUM 4.6 mMol/L (3.7-5.1)
[2016-12-24 05:02] LABS: CREATININE 13.6 mg/dL (0.5-1.1); MAGNESIUM 3.1 mg/dL (1.8-2.6)
--- NOTE | 2016-12-24 16:38 | NUR ---
1015 Met with patient, Dr. Fox, and nurse Dory today to discuss discharge plans. Patient's goal is to be able to discharge to home. Discussion evolved around if we are able to manage her pain she should be able to go home with home health care. They were discussing managing her pain with a Fentanyl pain patch. I mentioned to Dr. Fox the idea of Home Health Care and he was not certain she would need HHC because he does not feel she needs a lot of PT and OT. I informed Dr. Fox and Dory that Dr. Rothman had placed a consult for Dr. Browne which they were not aware of. [address] Rothman on the floor and informed her of the discussion with Dr. Fox earlier in the day. Dr. Rothman voiced her concerns about using the Fentanyl pain patch due to patient's kidney disease. She is in agreement with [facility] as is patient. Face to Face placed on the chart and Dr. Rothman is aware it is on the chart. Will wait to see what she and Dr. Fox decide on medications before proceeding with referral for Home Health Care. During all of the above I also had two phone calls from Jenifer with therapy and she is recommending either Home Health Care with PT or Outpatient PT for patient. Jenifer recommends and patient agrees to go with [facility] for limited ambulation with therapy. Will continue to follow and make home health referral tomorrow.
--- NOTE | 2016-12-24 17:05 | NUR ---
Patient alert and oriented x 3. VSS. Last BG was 128. Patient intake was 450 mL during shift. Patient tried to void on commode 1x and output was 2 mL. No BM on this shift. Patient is a 1PA and on peritoneal dialysis. Has port to left abdomen. Pain has been 3-4 throughout shift. Cold therapy has been offered and has had positive results. Patient has potential discharge or Friday - need last dose of Zosyn before d/c.
--- NOTE | 2016-12-25 04:35 | NUR ---
Pt. alert and oriented. VSS. RA. Last pain pill will be given at 0500. Gave fentanyl for breakthrough pain about midnight. Fluid restriction of 800ml in 24 hours. Ice chips preferred for pt. Pt. to use commode and not bedpan for voiding. Iris cushion on commode for pt. comfort. 1 assist with walker and gaitbelt. Back and forth between chair and bed. Carb counting for BS. Accuchecks are AC only. Pt. does request spot check at times. Spot checked about 2200 and it was over 400. Hospitalist notified but no new orders. Ice to R) hip for increased comfort. Possible discharge or Friday. Pt. slept better than past few nights. Cooperative with cares.
--- NOTE | 2016-12-25 12:56 | NUR ---
Met with patient this morning to discuss home health care and to see if she has an agency she prefers to use. Per patient she does not have a preference of agency, wants to go with whoever is in network. I called [employer] [place] and was informed that [facility] is within network. Pre- authorized patient with [employer] for home health care using [facility]. Spoke to [place] with [employer] for pre-authorization.
--- NOTE | 2016-12-25 14:30 | NUR ---
Referral made to Alejandra at [facility]. Faxed over the information I currently have on the patient. Still waiting on the Face to Face to be completed by doctor. Provided Alejandra with a copy of the Authorization of Services from [facility]. Per Dr. Rothman, patient will likely discharge tomorrow.
--- NOTE | 2016-12-25 15:09 | NUR ---
A - NUTRITION FOLLOW-UP PD PATIENT. WT STABLE PER RECORD. LABS: NA 128, GLU 281, BUN 81, CREA 13.6, ALB 2.3, PO4 8.1, MG 3.1 NEW MEDS: LEVEMIR, ZOFRAN. PT IS ON LASIX, MILD SSI, RENVELA DIET: RENAL W/ 800ML FLUID RESTRICTION, GLUCERNA ONCE DAILY. INTAKE <25% X11 MEALS. LIKES GLUCERNA. DISCUSSED LIKES AND DISLIKSE. ENCOURAGED PO INTAKE, PT VOICED UNDERSTANDING. EST NEEDS: [id number] KCAL, 62-78 GRAMS PROTEIN, FLUID NEEDS: PER MD D - INADEQUATE ORAL INTAKE RELATED TO DECREASED APPETITE EVIDENCED BY PO <25% X11 MEALS. I - CONTINUE W/ GLUCERNA ONCE DAILY. PT AGREED TO TRY SNACK ONCE DAILY. M/E - GOAL: PT WILL BE ABLE TO TOLERATE >50% OF MEALS AND AT LEAST ONE ORAL SUPPLEMENT/SNACK PER DAY IN 2-4 DAYS.
--- NOTE | 2016-12-25 15:41 | NUR ---
Significant Event: Patient given percocet last at 1409 with partial relief noted. Next dose due at 1809 and nurse will try and get that given prior to shift change. Up with 1 assist and walker with gait belt. Patient did work with physical therapy this afternoon and went up to the therapy room and worked on stairs. Patient given zofran at 0824 via IV due to nausea. Patient's glucose this a.m. was 91. Patient not given any insulin as she did not eat anything. Patient then at 1100 was 61 for a blood sugar. Gave patient glucose tabs at her request and of the 4 patient ate one and said she would eat the rest later. Patient after 1 glucose tab was up to 72 for a blood sugar and had ordered lunch, but only ate bites for lunch. Mag citrate 150 ml ordered for bowels and patient so far has had 1 sip of it. Did give patient ice chips to bring her up to her 500 ml for the day shift and she now has 300 ml left for nights. Did again encourage patient to drink the mag citrate as it would help her to feel much better. Follow up: Continue to monitor.
--- NOTE | 2016-12-26 04:16 | NUR ---
Pt. alert and oriented. VSS. RA. Last pain pill at 0330. Has pain patch on R) upper back. FLuid restriction of 800ml in 24 hours. 1 assist with walker. Uses bedside commode. Back and forth between chair and bed. Carb counting for BS. Ice to R) hip. Suppository to be given until BM. Did have very small BM but not enough to stop suppository. Possible d/c today.
[2016-12-26 04:35] LABS: BASOPHIL # 0.1 K/uL (0.0-0.2); BASOPHIL % 0.4 %; EOSINOPHIL # 0.2 K/uL (0.0-0.5); EOSINOPHIL % 1.1 %; HEMATOCRIT 31.3 % (33.0-46.0); HEMOGLOBIN 9.9 g/dL (10.0-15.0); IMMATURE GRANULOCYTE # 0.1 K/uL (0.0-0.3); IMMATURE GRANULOCYTE % 0.5 %; LYMPHOCYTE # 1.1 K/uL (0.8-4.0); LYMPHOCYTE % 6.5 %; MCH 26.9 pg (27.0-34.0); MCHC 31.6 gm/dL (32.0-36.5); MCV 85.1 fl (83.0-98.0); MONOCYTE # 1.6 K/uL (0.0-1.0); MONOCYTE % 9.7 %; MPV 9.8 fl (9.4-12.4); NEUTROPHIL # (ANC) 13.4 K/uL (1.8-7.8); NEUTROPHIL % 81.8 %; NRBC % 0 /100WBC (0-0.00); PLATELET COUNT 392 K/uL (150-450); RBC 3.68 M/uL (3.50-5.50); RDW-CV 14.6 % (11.9-14.6); WBC 16.4 K/uL (4.0-11.0)
[2016-12-26 04:49] LABS: ALBUMIN 2.2 gm/dL (3.5-5.0); ANION GAP 19.2 (10.0-19.0); CALCIUM 7.7 mg/dL (8.5-10.5); PHOSPHORUS 8.8 mg/dL (2.5-4.9); POTASSIUM 4.2 mMol/L (3.7-5.1)
[2016-12-26 04:50] LABS: CREATININE 13.5 mg/dL (0.5-1.1); MAGNESIUM 3.2 mg/dL (1.8-2.6)
--- NOTE | 2016-12-26 10:03 | NUR ---
pt's bs was 43 at 0718, apple juice and sugar given. blood sugar 58 at 0750, juice and 2 sugars given, refused peanut butter and kathleen crackers, rechecked at 0840-63, glucose tabs given, rechecked at 0915-77, UMESH Santos notified and dex 50% given iv. rechecked at 1008- 187, ate breakfast bites only.
--- NOTE | 2016-12-26 11:12 | NUR ---
Spoke to UMESH Chua and Dr. Rothman about patient and decision was made that she will not discharge today due to BS being uncontrolled. We will possibly look at discharge tomorrow. Notified Alejandra at [facility].
--- NOTE | 2016-12-26 16:52 | NUR ---
Significant Event:PT. AC AND HS BLOOD SUGARS AND WAS 43 AT 0718, GAVE JUICE X2 WITH SUGAR AND BLOOD SUGARS INCREASED TO 58, 63, AND 77. GAVE ORAL GLYCEMIC TABS AND THEN IV DEXTROSE. BLOOD SUGAR AT 1100 WAS 244 WITH SLIDING SCALE INSULIN BUT NO CARB COUNT BECAUSE SHE ATE ONLY A FEW BITES. UP TO CHAIR AND BR WITH ONE ASSIST. HAD TWO BMS TODAY. SLEPT MOST OF DAY.IV RFA. HAS PAIN PATCH. ON 800ML FLUID RESTRICTION AND PERITONEAL DIALYSIS AT HS. Follow up:
--- NOTE | 2016-12-27 05:01 | NUR ---
Significant Event: ALERT AND ORIENTATED X3 AMBULATES WITH PIVOT TRANSFER GB WALKER CAN AMBULATE WITH 2 ASSIST IF PAIN IS UNDER CONTROL. BLOOD SUGAR WAS 444 DR. QUEZADA NOTIFIED ORDERED 8 UNITS OF NOVOLOG REPEAT BLOOD SUGAR 389. SUGARS WERE 43-78 ON DAY SHIFT. PATIENT IS ON PERITONEAL DIALYSIS. SCANT URINE PRODUCTION. 800ML Q 24 HRS FLUID RESTRICTION. PERCOCET 2TABS GIVEN AT 0144. PATIENT MOVED BETWEEN CHAIR AND BED X3 THIS SHIFT. RESTED COMFORTABLY Follow up:
[2016-12-27 05:11] LABS: BASOPHIL # 0.1 K/uL (0.0-0.2); BASOPHIL % 0.3 %; EOSINOPHIL # 0.2 K/uL (0.0-0.5); EOSINOPHIL % 1.4 %; HEMATOCRIT 30.3 % (33.0-46.0); HEMOGLOBIN 9.7 g/dL (10.0-15.0); IMMATURE GRANULOCYTE # 0.1 K/uL (0.0-0.3); IMMATURE GRANULOCYTE % 0.7 %; LYMPHOCYTE # 0.9 K/uL (0.8-4.0); LYMPHOCYTE % 5.9 %; MCH 26.8 pg (27.0-34.0); MCV 83.7 fl (83.0-98.0); MONOCYTE # 1.7 K/uL (0.0-1.0); MONOCYTE % 10.9 %; MPV 9.7 fl (9.4-12.4); NEUTROPHIL # (ANC) 12.4 K/uL (1.8-7.8); NEUTROPHIL % 80.8 %; NRBC % 0 /100WBC (0-0.00); PLATELET COUNT 371 K/uL (150-450); RBC 3.62 M/uL (3.50-5.50); RDW-CV 14.5 % (11.9-14.6); WBC 15.3 K/uL (4.0-11.0)
[2016-12-27 05:24] LABS: ALBUMIN 2.1 gm/dL (3.5-5.0); ANION GAP 20.1 (10.0-19.0); CALCIUM 7.5 mg/dL (8.5-10.5); PHOSPHORUS 7.5 mg/dL (2.5-4.9); POTASSIUM 4.1 mMol/L (3.7-5.1)
[2016-12-27 05:27] LABS: CREATININE 12.9 mg/dL (0.5-1.1); MAGNESIUM 3.1 mg/dL (1.8-2.6)
--- NOTE | 2016-12-27 12:32 | NUR ---
A-NUTRITION F/U PERITONEAL DIALYSIS. LABS: NA 134, K+ 4.1, GLU 57, BUN 85, PROCESS DEVELOPMENT ENGINEER 12.9, ALB 2.1 ACCU CHECKS: 31-444 MEDS: DEFLEX, NORVASC DIET RX; RENAL DIET W/1000 ML FLUID RESTRICTION. GLUCERNA QD. PO INTAKE SINCE LAST F/U HAS BEEN REFUSAL-BITES. VISITED W/PT RE: APPETITE AND SUPPLEMENT. PT REPORTS HER APPETITE HAS NOT BEEN GOOD D/T NOT FEELING WELL. LIKES THE ALEJANDRO. GLUCERNA. C/O THE FOOD TOO DRY; OFFERED GRAVY ON THE SIDE TO ADD EXTRA MOISTURE. PT WAS AGREEABLE TO THIS. EST NUTR NEEDS: [id number] KCALS AND 62-78 GM PROTEIN D-AT NUTRITION RISK W/INADEQUATE INTAKE OF NUTRIENTS R/T DECREASED APPETITE AEB INTAKE RECORDS, PT REPORT. I-1)INCREASE GLUCERNA FROM QD TO BID 2)ADD GRAVY ON THE SIDE M/E-GOAL: PO INTAKE >/=50% BY DISCHARGE 1)F/U PO INTAKE, SUPPLEMENT, AND POC IN 3-5 DAYS 2)ASSIST NEEDED
--- NOTE | 2016-12-27 14:56 | NUR ---
Patient's BS are still not controlled so she will not discharge today. Called Ayala at [facility] at [phone] as she is the wide area network administrator biomass production manager this weekend and informed her that patient will not discharge today, but possible discharge over the weekend. At this time Ayala has her on the schedule for nursing staff to see on Friday- If patient discharges this weekend, Face to Face and discharge orders will need to be faxed to [phone]- Fax cover sheet is in the chart, filled out and ready to go. Also, nursing staff will need to call Ayala at above number and let her know patient discharged. Should not have any other needs.
--- NOTE | 2016-12-27 15:02 | NUR ---
Transfer note: Patient is alert and oriented x3. VSS. Will occasionally have tachycardia. Was admitted on 12/18/16 after falling at home and fracturing her pelvis. She has a history of type I diabetes, end-stage renal disease-is on peritoneal dialysis, diabetic neuropathy, hypothyroidism, hypertension, osteoporosis. Pt has a fentanyl patch, that was replaced today. Dilaudid prn and percocet prn for pain control. Last percocet was 1140, last dilaudid was 1350. Uses ice to hip areas as needed. Pt is a 1-assist with transfers with walker and gait belt. Has ambulated with PT today without difficulty. Pt is on ACHS accuchecks. Has been having troubles with regulation of sugars. This morning was 27, after glucose tabs was 31, then given 1/2 amp of D50 and was 118. At 1100 it was 160. Pt is on mild sliding scale and carb count insulin. No coverage was given, due to patient not eating. Pt has constipation and was getting routine suppositories. Did have 2 bm's yesterday and 1 on nights. Suppository was held today. Has IV to left forearm for intermittent antibiotics. Did have 1 incontinent void today, wears briefs. Is on an 800ml/24hr fluid restriction. Has had 400 so far today. Family is supportive. Cooperative with cares. fluid restriction
--- NOTE | 2016-12-27 18:50 | NUR ---
AMBULATED AROUND THE BED AND STOOD AT BEDSIDE ONCE WITH WALKER, GAIT BELT AND SBA. 1 PERCOCER AT 1600 AND DILAUDID.1 MG IV AT 1700. RATES PAIN AT A 3 ON THE 0-10 SCALE NOW. WAS INCOT OF A LIQUID BM. ACCUCHECK AT SUPPER WAS 278. RESTING QUIETLY AT BEDSDIDE.
--- NOTE | 2016-12-28 04:15 | NUR ---
Significant Event: Alert/oriented x3. Peritonel dialysis nightly. Pt bypassed part of dialysis, nurse Desiree notified, she will be back this morning at 0800. Pt complained it was "getting tight" in her abdomen. Will need daily weight, attempted to stand at 0400, pt wanted to lie back down, will need to get it on day shift later this AM. Accuchecks AC TID. She felt dizzy this morning at 0230, wanted it checked - 303. VSS. Ice applied to right hip. No BM this shift, had 1 yesterday on day shift. Fluid Restriction 800 mls Q24H. Ambulates with pivot transfer 2 assist. Follow up:
--- NOTE | 2016-12-28 13:44 | NUR ---
Significant Event: AOx3. Hypertensive this a.m. SBP 160's. BS was 444. MD notified and 8 units of Novolog was given. Rechecked BS at 0900 -420. MD notified and patient was given Regular and Novolog. BS then came down to 252. 4 units was then given at 1130. Patient refused breakfast and ate a few bites of chicken noodle soup. Percocet for pain. 1 assist with walker. Incontinent of bowel and bladder. Fluid restriction 800ml Q 24hrs. Follow up:
--- NOTE | 2016-12-29 05:02 | NUR ---
Significant Event: Alert and oriented X3. Vital signs stable. Edema noted to LLE. Has had 3 incontinent BM's this shift. Pt has been up to chair and stood at bedside tonight, fatigues easily. No urine output. Peritoneal dialysis running throughout night. Percocet given last at 0325. Duargesic patch to L) back shoulder. Fluid restriction of 800 ml. Blood sugar at HS was 133. Pt requested check at 0142 and was 233. Checked again this and was 428 & 416. MD notified. Order to give 8 units of Novolog and recheck in 2 hrs. Up with 1-2 assist, gait belt and walker. Follow up: Monitor for signs of high or low blood surgars. Need daily wt after PD.
[2016-12-29 10:51] LABS: ANION GAP 20.3 (10.0-19.0); CALCIUM 7.6 mg/dL (8.5-10.5); PHOSPHORUS 6.8 mg/dL (2.5-4.9); POTASSIUM 4.3 mMol/L (3.7-5.1)
[2016-12-29 10:52] LABS: CREATININE 12.5 mg/dL (0.5-1.1)
--- NOTE | 2016-12-29 13:27 | NUR ---
Significant Event: AOx3. Transfers with 1 assist with walker. BS was 331-0700, 130-1100. Did not give insulin for carb count. Patient ate %10 breakfast and %50 lunch. 800ml fluid restriction. Percocet given for pain in R) hip. Accuchecks TID. Daily weight. Peritoneal dialysis at night. Follow up:Possible dismissal tomorrow.
--- NOTE | 2016-12-30 03:46 | NUR ---
Significant Event: Vital signs stable. Edema noted to left leg. Bowel sounds active. Refused dulcolax supp. last night, last BM was yesterday. Was incontinent of 2 small voids. PD site to left abdomen. Pt noncompliant with PD.. pt stated that her abodmen felt tight and told RN she bypassed 1 phase. At 0100 assessment, the dialysis machine read complete. I asked patient, she stated that she had bypassed through the phases (without notify RN). Pt again stated that it made her abdomen feel too tight. Refused to stand on scale for weight, will attempt again this am. Has been very restless throughout night. Rates pain 5-6/10 to L) leg. Percocet 1 tab given approx q 2 hr, will update with last time. Accucheck at HS was 307. Pt requested it to be checked around 2345, was 261. 0250 check was 109. NA was 133 yesterday. Refused sodium tabs, state they make her nauseated. Educated on improtance of tabs. Transfers with 1 assist, gait belt and walker, fatigues. Follow up: Monitor blood sugars. Possibly discharge home today.
[2016-12-30 05:37] LABS: BASOPHIL # 0.1 K/uL (0.0-0.2); BASOPHIL % 0.3 %; EOSINOPHIL # 0.2 K/uL (0.0-0.5); EOSINOPHIL % 1.2 %; HEMATOCRIT 29.6 % (33.0-46.0); HEMOGLOBIN 9.5 g/dL (10.0-15.0); IMMATURE GRANULOCYTE # 0.1 K/uL (0.0-0.3); IMMATURE GRANULOCYTE % 0.6 %; LYMPHOCYTE # 1.2 K/uL (0.8-4.0); LYMPHOCYTE % 7.7 %; MCH 27.1 pg (27.0-34.0); MCHC 32.1 gm/dL (32.0-36.5); MCV 84.6 fl (83.0-98.0); MONOCYTE # 1.8 K/uL (0.0-1.0); MONOCYTE % 11.5 %; NEUTROPHIL # (ANC) 12.4 K/uL (1.8-7.8); NEUTROPHIL % 78.7 %; NRBC % 0 /100WBC (0-0.00); PLATELET COUNT 376 K/uL (150-450); WBC 15.8 K/uL (4.0-11.0)
[2016-12-30 05:51] LABS: ANION GAP 18.4 (10.0-19.0); CALCIUM 7.6 mg/dL (8.5-10.5); PHOSPHORUS 6.9 mg/dL (2.5-4.9); POTASSIUM 4.4 mMol/L (3.7-5.1)
[2016-12-30 05:55] LABS: CREATININE 12.6 mg/dL (0.5-1.1); MAGNESIUM 3.4 mg/dL (1.8-2.6)
--- NOTE | 2016-12-30 08:42 | NUR ---
A - NUTRITION F/U. NA+ 133, GLU 64, BUN/ART SUPERVISOR 87/12.6, ALB 2.0, WBC 15.8. PT ON PERITONEAL DIALYSIS. DIET: RENAL W/ 1000 ML FR. INTAKE VARIES REF TO 100%, AVERAGE 50%. OFFERED GLUCERNA BID. POSSIBLE DISCHARGE TODAY. D - AT RISK W/ INADEQUATE ORAL INTAKE R/T DECREASED APPETITE AEB INTAKE RECORD. I - GOAL: > 50% AVERAGE INTAKE BY DISMISSAL. M/E - 1) F/U ON INTAKE IN 2-4 DAYS IF STILL HERE.
[2016-12-30 11:10] LABS: INR - (THERAPEUTIC) 0.94 (0.92-1.07); PROTIME 9.9 SECONDS (9.8-11.4)
--- NOTE | 2016-12-30 11:12 | NUR ---
Attended morning huddle on 3h today. Informed that patient bypassed all of her PD dialysis last pm. Spoke to Marima Collins APRN with nephrology and she has secured a chair time for patient at [facility] at 1200 on ,, Friday or 3rd shift on ,W,. Mariam has an order into get a line placed today on patient. If this happens she will be able to discharge to home and go to dialysis at [facility] tomorrow at 1200. Met with patient and son at bedside today. Patient states she has been doing well since transferring to the [facility]. Explained to her that I still have home health care lined up for her upon discharge. Son asked about getting a shower bench and toilet riser for patient. I referred him to [employer] to see if they can rent the shower bench. I also instructed him on where they can purchase a toilet riser ([facility], [employer], [employer], [employer], [employer] [place] [employer], [place], etc.). I placed a call to Terrell at [facility] and infored her that patient will be getting line placed today, have dialysis at [facility] tomorrow and then would need [facility] services on Friday. Will wait for final discharge orders on patient.
--- NOTE | 2016-12-30 15:38 | NUR ---
Significant Event: Pt Aox3. VSS, CSM inadequate r/t weakness. PD dialysis disconnected per Dialysis nurse. She bypassed all four stages last night. Refused Na tabs again this am. Needs monitored closely on her fluid restriction. 300mL in for me until 1144, then she went to interventional radiology for a temporary dialysis catheter and then dialysis. Edema to left leg. Percocet given x 1. BS was 54 this am, gave glucose tabs and glucerna. Up to 110s, then she requested it to be rechecked later and it was 151. Up with one assist, walker and gait belt. Weak to lower extremities. Repositioned frequently. Plans to dc tomorrow. Must be to dialysis at 1200. Follow up:
--- NOTE | 2016-12-31 04:36 | NUR ---
Significant Event: Daily weight. Accu check TID with no sliding scale, but do carb count. Levemier discontinued. Blood sugar as low as 28. MD notified. Check blood sugars every 30 minutes. Call MD if glucose is <100 or >300. Give Dextrose 50% 1 amp if glucose is <150 and then recheck in 15 minutes. Have given 3 amps of Dextrose with last dose at 0405. Has a PD cath. Has a temporary dialysis cath. Fluid restriction 800ml. Percocet at 0234. Plan was to dismiss home and patient have dialysis at 1200 at outside facility. Dilaudid IV x1 at 2342. Follow up:
[2016-12-31 05:14] LABS: BASOPHIL # 0.1 K/uL (0.0-0.2); BASOPHIL % 0.3 %; EOSINOPHIL % 0.2 %; HEMATOCRIT 29.5 % (33.0-46.0); HEMOGLOBIN 9.4 g/dL (10.0-15.0); IMMATURE GRANULOCYTE # 0.1 K/uL (0.0-0.3); IMMATURE GRANULOCYTE % 0.8 %; LYMPHOCYTE # 0.8 K/uL (0.8-4.0); LYMPHOCYTE % 5.2 %; MCH 27.2 pg (27.0-34.0); MCHC 31.9 gm/dL (32.0-36.5); MCV 85.3 fl (83.0-98.0); MONOCYTE # 1.3 K/uL (0.0-1.0); MONOCYTE % 8.2 %; MPV 9.3 fl (9.4-12.4); NEUTROPHIL # (ANC) 13.4 K/uL (1.8-7.8); NEUTROPHIL % 85.3 %; NRBC % 0 /100WBC (0-0.00); PLATELET COUNT 329 K/uL (150-450); RBC 3.46 M/uL (3.50-5.50); WBC 15.7 K/uL (4.0-11.0)
--- NOTE | 2016-12-31 17:04 | NUR ---
Significant Event: Ambulates with one assist, walker and gaitbelt. Needs encouragement to do things by herself. Dialysis cath to L) upper chest, PD cath to abdomen. 1500mL fluid restriction, had 800mL in this shift. Small BM. Accuchecks ordered for ACHS, 0200 and 0600. Percocet 1 tab last at 1410. Very restless this shift, repositions between chair and bed frequently. Follow up:
--- NOTE | 2017-01-01 04:45 | NUR ---
Shift Summary: Patient can ambulate with one assist and walker. Only sleeps an hour at a time. Transfered from bed to recliner frequently. Wears a brief and is incontinent of urine/stool in it. Order to ambulate to BR each time, no bedpans or BSC. Patient's BS was 381 at HS and 411 at 0200. Patient started on mild SS and given 8units of Novolog at 0200. Also gave one dose of IV Apreoline at 0147 for B/P 178/83. B/P down to 128/68 about 20 minutes later. Gave one percocet last at 0147.
[2017-01-01 05:34] LABS: HEMATOCRIT 29.7 % (33.0-46.0); HEMOGLOBIN 9.3 g/dL (10.0-15.0); MCHC 31.3 gm/dL (32.0-36.5); MCV 86.1 fl (83.0-98.0); MPV 9.5 fl (9.4-12.4); PLATELET COUNT 344 K/uL (150-450); RBC 3.45 M/uL (3.50-5.50); RDW-CV 15.1 % (11.9-14.6)
[2017-01-01 05:35] LABS: WBC 16.4 K/uL (4.0-11.0)
[2017-01-01 05:47] LABS: ALBUMIN 2.3 gm/dL (3.5-5.0); ANION GAP 16.7 (10.0-19.0); CALCIUM 7.9 mg/dL (8.5-10.5); PHOSPHORUS 5.1 mg/dL (2.5-4.9); POTASSIUM 4.7 mMol/L (3.7-5.1)
[2017-01-01 05:50] LABS: CREATININE 9.2 mg/dL (0.5-1.1)
[2017-01-01 06:23] LABS: ABSOLUTE NEUTROPHIL CT (ANC) 13.6 K/uL (1.8-7.8); LYMPHOCYTE # 1.3 K/uL (0.8-4.0); LYMPHOCYTE % 8 %; MONOCYTE # 1.5 K/uL (0.0-1.0); SEGMENTED NEUTROPHIL # 13.6 K/uL (1.8-7.8); SEGMENTED NEUTROPHIL % 83 %
--- NOTE | 2017-01-01 14:40 | NUR ---
Met with patient for social visit at 1440. She is planning on discharging to home today with home health care from [facility]. I called Terrell with [facility] and informed her that patient is discharging today. Terrell is coming to the hospital for another patient so she will get paperwork off of patient's chart. If Dr. Rothman has not signed the face to face yet, then I will fax it to Terrell at [phone]. Patient states her son was able to arrange for a shower bench for her. She denies any other needs at this time. Her dialysis is scheduled at [facility] for T, TH, S at 1200.
[2017-01-01] MEDS ORDERED: DURAGESIC1 EAC2 TRANS (15:17)
[2017-01-01] MEDS ORDERED: NOVOLOG100 UNIT/M SUB-Q ×2 (15:19→15:30)
[2017-01-01] MEDS ORDERED: MIRALAX17 GM PO (15:20)
[2017-01-01] MEDS ORDERED: DRISDOL 5050000 UNIT PO (15:21)
[2017-01-01] MEDS ORDERED: PEPCID20 MG PO (15:32)
--- NOTE | 2017-01-01 17:06 | NUR ---
Dismissal Note: Ambulates with SBA and walker. Dialysis this shift. Radha education given with dismissal instructions, patient and son state understanding. IV d/cd. Dismissed to home with son. Percocet 1 tab last at 1556.
== END 2017-01-01 17:15 | disposition disaster alternative care site (69) | DRG 535 ==
LOC: GMED 09:23 → GMSU 13:14 → G3N 12-27 15:46
PROVIDERS: Family Medicine; Hospitalist; Internal Medicine; Internal Medicine Nephrology; Nurse Practitioner; Physician Assistant; Student in an Organized Health Care Education/Training Program; ADMIT Internal Medicine
PROC: 3E1M39Z Irrigation of Peritoneal Cavity using Dialysate, Percutaneous Approach (ICD-10-PCS; principal; 2016-12-18)
PROC: B5141ZA Fluoroscopy of Left Jugular Veins using Low Osmolar Contrast, Guidance (ICD-10-PCS; 2016-12-30)
PROC: 05HN33Z Insertion of Infusion Device into Left Internal Jugular Vein, Percutaneous Approach (ICD-10-PCS; 2016-12-30)
DX: S32.9XXA Fracture of unspecified parts of lumbosacral spine and pelvis, initial encounter for closed fracture (principal); A41.9 Sepsis, unspecified organism; N18.6 End stage renal disease; I12.0 Hypertensive chronic kidney disease with stage 5 chronic kidney disease or end stage renal disease; S32.10XA Unspecified fracture of sacrum, initial encounter for closed fracture; E11.65 Type 2 diabetes mellitus with hyperglycemia; E87.1 Hypo-osmolality and hyponatremia; E03.9 Hypothyroidism, unspecified
CPT/HCPCS: C1750; J0360; J1170; J1610; J1644; J2405; J2543; J3010; J3370; J7050; P9047; Q4081

== ENCOUNTER → 2017-01-06 | Outpatient (CLI) | payer BC ==
[~2017-01-06] MED LIST changes: +ASPIRIN LO-DOSE81 MG PO; +COZAAR25 MG PO; +DRISDOL 5050000 UNIT PO; +DULCOLAX10 MG R; +DURAGESIC1 EAC2 TRANS; +EPOGEN (2020000 UNIT SUB-Q; +GLUCAGON 1 MG PE1 MG SUB-Q; +GLUCOSE4 GM PO; +LEVAQUIN500 MG PO; +MILK OF MA400 MG/5 M PO; +MIRALAX17 GM PO; +NOVOLOG100 UNIT/M SUB-Q; +ONDANSETRON ODT4 MG SL; +PEPCID20 MG PO; +PERCOCET 5-3251 EACH PO; +PHOSLO667 MG PO; +TUMS REGULAR ST1 TAB PO; +TYLENOL325 MG PO; +VITAMIN D250000 UNIT PO
== END | disposition disaster alternative care site (69) ==
LOC: GRAD 10:00
DX: M80.052A Age-related osteoporosis with current pathological fracture, left femur, initial encounter for fracture (principal); M80.051A Age-related osteoporosis with current pathological fracture, right femur, initial encounter for fracture; M80.08XA Age-related osteoporosis with current pathological fracture, vertebra(e), initial encounter for fracture; M43.8X6 Other specified deforming dorsopathies, lumbar region

== ENCOUNTER 2017-01-17 07:08 | Inpatient (IN) | payer BC ==
[~2017-01-17] VITALS: Ht 160 cm; Wt 62.6 kg
--- NOTE | ~2017-01-17 | ER ---
PATIENT'S NAME: YVON ZIMMERMAN [facility] AGE: 56 Y [address] ROOM: [place] [address] LOCATION: GICU ADMIT DATE: 01/17/2017 ER/Outpatient Report DISCHARGE DATE: FAMILY PHYSICIAN: Carlton Lopes MD ATTENDING PHYSICIAN: SUNNY COOK Time of Arrival: 0708 hours. Time of Evaluation/Seen: 0708 hours. IDENTIFICATION: A 56-year-old female. CHIEF COMPLAINT: Unresponsive. HISTORY OF PRESENT ILLNESS: The patient is a 56-year-old female who was found at [facility] unresponsive. This was unwitnessed and unknown how long she was unresponsive. Her blood sugar was too low to read. She was given one amp of D50 per EMS, and her blood sugar improved to 120s. On arrival here to the emergency room, the patient was not responsive, did minimally open her eyes to command. [place] Coma Score was 7 on arrival. No history was obtained from the patient. History was obtained from old records. PAST MEDICAL HISTORY: ALLERGIES: SAUSAGE. CURRENT MEDICATIONS: 1. Cholecalciferol 2000 units daily. 2. Combigan 0.2% to 0.5% 1 drop in both eyes 2 times a day. 3. Drisdol 50,000 units 1 time weekly. 4. Dulcolax suppository p.r.n. 5. Fentanyl patch 72 mcg/hour 1 patch every 72 hours that was replaced yesterday. This was removed on patient arrival. 6. Glucose tablets p.r.n. 7. Lasix 80 mg 2 tablets 1 time a day. 8. Levemir 6 units 1 time a day in the morning and 7 units 1 time a day in the evening. 9. Levothyroxine 125 mcg daily. 10. Losartan 25 mg b.i.d. 11. Milk of magnesia p.r.n. 12. MiraLAX 17 g daily. 13. Ocuvite Lutein tablets daily. PATIENT'S NAME: YVON ZIMMERMAN [facility] AGE: 56 Y [address] ROOM: [place] [address] LOCATION: GICU ADMIT DATE: 01/17/2017 ER/Outpatient Report DISCHARGE DATE: FAMILY PHYSICIAN: Carlton Lopes MD ATTENDING PHYSICIAN: SUNNY COOK. Percocet p.r.n. MEDICAL PROBLEMS: 1. Pelvic fracture with intractable pain. 2. End-stage renal disease, recently converted from peritoneal dialysis to hemodialysis. 3. Insulin-dependent diabetes with labile control. 4. Essential hypertension. 5. Anorexia. 6. Vitamin D deficiency. 7. Primary hypothyroidism. 8. Hospitalized from December 18 to January 01 for sepsis of unknown origin. 9. Hypertension. PAST SURGICAL HISTORY: Prior Surgeries: 1. Right leg pinning 5 years ago. 2. Peritoneal dialysis catheter. 3. Central dialysis catheter, left upper chest. 4. section. FAMILY HISTORY: No pertinent family history. Reviewed from old records. SOCIAL HISTORY: The patient has recently been staying at [facility]. Tobacco use; unknown. Alcohol use; unknown. Drug use; unknown. REVIEW OF SYSTEMS: Unable to obtain from the patient. PHYSICAL EXAMINATION: VITAL SIGNS: Weight 63.3 kg, blood pressure 184/84, pulse 89, respiratory rate 12, temperature 97.1, and sats 92%. [place] Coma Score 7. GENERAL: Minimally responsive female who will open her eyes to pain and minimally to voice, is not vocalizing at all on arrival. Does have some movement of her extremities, but does not respond much to pain. HEENT: Head; normocephalic and atraumatic. Eyes; pupils are equal and reactive. Nose; mucosa pink. No lesions. Mouth; no lesions. Pharynx, benign. Mucous membranes are dry. LUNGS: Clear to auscultation. HEART: Regular rate and rhythm. ABDOMEN: Soft, nondistended, nontender. SKIN: Pale, warm, and dry. NEUROLOGIC: The patient is as described above. PATIENT'S NAME: YVON ZIMMERMAN [facility] AGE: 56 Y [address] ROOM: [place] [address] LOCATION: [facility] ADMIT DATE: 01/17/2017 ER/Outpatient Report DISCHARGE DATE: FAMILY PHYSICIAN: Carlton Lopes MD ATTENDING PHYSICIAN: SUNNY COOK EMERGENCY DEPARTMENT COURSE: An IV was initiated. She was given 500 mL fluid bolus. She had minimal respiratory effort and was requiring constant stimulation. Repeat Accu-Chek here was 58 and another amp of D50 was given and D10 was ordered. EKG; sinus rhythm at 84 beats per minute. No acute ST elevation or depression. Nonspecific ST-T wave changes are present. Procalcitonin is elevated at 2.58. Lactate is 1.2. Hemoglobin 9.1, this is stable, hematocrit 28.3, platelets are 48,000, and white count 10.9. INR 0.96, sodium 137, potassium 3.7, chloride 101, CO2 of 28, BUN 15, creatinine 2.6, and blood sugar 115. Liver enzymes normal. Cardiac enzymes are negative. The pH of 7.47, pCO2 of 43, pO2 of 64, and sats 93% on room air. Head CT without contrast, no acute findings per Radiology. Chest x-ray, 1 view, hazy opacity in the mid and lower left hemithorax consistent with lung consolidation and pleural fluid, and lateral lower rib fracture at 7th rib. Dialysis catheter is in place. The patient was given 0.2 mg of Narcan twice. Accu-Cheks were obtained every 15 to 30 minutes. The patient's blood sugar remained greater than 80. She was on D10 normal saline at 100 mL/h. No change with the Narcan. She was initiated on Zosyn and Levaquin for pneumonia. IMPRESSION AND PLAN: 1. Altered mental status, probably secondary to hypoglycemia. The patient's mentation did improve slightly, throughout her stay here in the emergency room. She did answer more questions and talked to Dr. Cook. She was a little bit more alert. 2. Chronic pain. The patient on a fentanyl patch. Due to her unresponsive nature, we did give her Narcan and removed the patch. 3. New left 7th rib fracture. 4. Pneumonia versus hemothorax, left lower lung. Antibiotics initiated here in the emergency room with her elevated procalcitonin. The patient's blood pressure remained stable. 5. End-stage renal disease, on hemodialysis. 6. Hypertension. Blood pressure has been stable throughout her stay here in the emergency room. Plan for admission per Dr. Cook, who evaluated the patient in the emergency room. The patient arrived at 0706 hours, was taken to the floor at 1016 hours and 45 minutes of critical care was provided with this patient. JULIO STEVENSON MD CAR/modl PATIENT'S NAME: YVON ZIMMERMAN [facility] AGE: 56 Y [address] ROOM: [place] [address] LOCATION: GICU ADMIT DATE: 01/17/2017 ER/Outpatient Report DISCHARGE DATE: FAMILY PHYSICIAN: Carlton Lopes MD ATTENDING PHYSICIAN: SUNNY COOK /[id number] d: 01/18/17211 t: 01/19/17 0834, OUTPATIENT REPORT
--- NOTE | ~2017-01-17 | DS ---
PATIENT'S NAME: YVON ZIMMERMAN [facility] AGE: 56 Y [address] ROOM: [id number] [place], [place] [address] LOCATION: GPCU ADMIT DATE: 01/17/2017 Discharge Summary DISCHARGE DATE: FAMILY PHYSICIAN: Carlton Lopes MD ATTENDING PHYSICIAN: Patricio Cook PRINCIPLE DIAGNOSIS: Acute metabolic encephalopathy. SECONDARY DIAGNOSES: 1. Hypokalemia. 2. Healthcare-associated pneumonia with parapneumonic effusions. 3. Insulin-dependent diabetes mellitus. 4. End-stage renal disease. 5. Essential hypertension. HOSPITAL COURSE: A 56-year-old lady was admitted from the nursing facility where she was found unresponsive. In the emergency department, a CAT scan of the head was done, which was unremarkable. She was found to be hypoglycemic with a blood glucose of 58, she was given 2 units of D50. On x-ray, she also found to have left-sided pleural effusion as well as adjacent consolidation. She was admitted to the ICU and pleural tap was undertaken by Cardiothoracic Surgery and about 900 mL of fluid was taken out, which revealed transudative in nature, and no culture of Gram stain were conclusive. She was treated for healthcare-associated pneumonia with vancomycin, Zosyn, and Levaquin, which were later deescalated based on procalcitonin and absence of any resistant organism to ceftriaxone and Levaquin. Her blood glucose remained to be a problem during the course of the hospitalization with very high-sensitive with insulin and dropping blood glucose to 37. She was finally put on 5 units of insulin detemir and that is what she will be discharged on with q.6 Accu- Cheks. That needs to be carefully monitored by the nursing facility with careful Accu-Cheks. She recently had a pelvic fracture and a conservative management was undertaken by Orthopedics, she is still not wearing. Orthopedics Surgery was consulted in the hospital to advise for her nonweightbearing status. She will be discharged to nursing facility, where she came from. The only medication changes were her insulin detemir, which was changed to only 5 units daily with sliding scale insulin. Continue Levaquin for 4 more days. For detail of medication, please see MAR. DIET: Diabetic diet. ACTIVITY: Per Orthopedic Surgery. I spent 35 minutes in discharge planning and coordination of care of this patient. PATIENT'S NAME: YVON ZIMMERMAN [facility] AGE: 56 Y [address] ROOM: [place] [address] LOCATION: [facility] ADMIT DATE: 01/17/2017 Discharge Summary DISCHARGE DATE: FAMILY PHYSICIAN: Carlton Lopes MD ATTENDING PHYSICIAN: Patricio Cook MD SAE SINHA/modl /[id number] d: 01/22/17 0119 t: 01/27/17 0844, DISCHARGE SUMMARY
--- NOTE | ~2017-01-17 | OR ---
PATIENT'S NAME: YVON CALLOWAY [facility] AGE: 56 Y [address] ROOM: [place] [address] LOCATION: GICU ADMIT DATE: 01/17/2017 OR/Procedure Report DISCHARGE DATE: FAMILY PHYSICIAN: Carlton Lopes MD ATTENDING PHYSICIAN: SUNNY RODRIGUEZ SURGEON: Abdi Gonzalez DO SCALE SHOOTER: DATE OF PROCEDURE: 01/17/2017 PREOPERATIVE DIAGNOSIS: Left pleural effusion. POSTOPERATIVE DIAGNOSIS: Left pleural effusion. PROCEDURE: Left thoracentesis. BRIEF HISTORY: Mrs. Calloway is a 56-year-old white female with the above-noted diagnosis. Ultrasound has been used to wilfred the left pleural space. The patient was supine secondary to recent hip fracture and is currently on dialysis. DESCRIPTION OF PROCEDURE: The area was sterilely prepped and draped. 1% lidocaine was used to infiltrate the skin wheal and deeper tissues. Pleural space was aspirated and the pleura was infiltrated with 1% lidocaine as well. A stab incision was made. A catheter was placed in the pleural space and then connected to the Vacutainer bottle, and 800 mL of serosanguineous fluid, very thin in nature, was evacuated. The catheter was then removed and Band-Aid applied. The patient tolerated the procedure well. An 800 mL as noted above was removed and will be sent for cytologic and microbiologic examination. The patient tolerated the procedure well. A chest x-ray is pending. ABDI GONZALEZ DO MCB/modl /[id number] d: 01/17/17 2336 t: 01/18/17 0103, OPERATIVE SUMMARY
--- NOTE | ~2017-01-17 | CON ---
PATIENT'S NAME: LIS CALLOWAY [facility] AGE: 56 Y [address] ROOM: [place] [address] LOCATION: GICU ADMIT DATE: 01/17/2017 Consultation DISCHARGE DATE: FAMILY PHYSICIAN: Carlton Lopes MD ATTENDING PHYSICIAN: SUNNY RODRIGUEZ REFERRING PHYSICIAN: FARSHAD PEGUERO MD REASON FOR CONSULT: Drop in hemoglobin. HISTORY OF PRESENT ILLNESS: Lis Calloway is a 56-year-old female with multiple comorbidities, mainly relating to her long-standing history of diabetes with end-stage renal disease and was admitted with altered mental status and resuscitated with dextrose and Narcan. I have been asked to see her in view of dropping hemoglobin of 2 g from initial value of 9.1 to 7 over the last few days. Her BUN is 8.0 and there is no obvious history of rectal bleeding. No history of bright red blood per rectum or melenic stools. She has had history of chronic abdominal pain secondary to her PD catheter as well as recent history of thoracentesis. There is no previous history of known peptic ulcer disease or GI bleed. She states, she never had an upper endoscopy. However, did have a colonoscopy at [facility] earlier this year with findings of colon polyps. I do not have the report. PAST MEDICAL HISTORY: As noted for end-stage renal disease on hemodialysis, diabetes, hypertension, hypothyroidism, and pelvic fracture. MEDICATIONS: As noted in MAR. She was just placed on Protonix p.o. this morning. PAST SURGICAL HISTORY: Hip fracture status post ORIF as well as and colonoscopy. FAMILY HISTORY: None for GI cancer. REVIEW OF SYSTEMS: The 10-point review of systems is otherwise negative except as noted above. PHYSICAL EXAMINATION: GENERAL: Elderly, chronically ill-looking female, in no acute distress. VITAL SIGNS: Afebrile, otherwise stable. PATIENT'S NAME: LIS CALLOWAY [facility] AGE: 56 Y [address] ROOM: [id number], [place] [address] LOCATION: GICU ADMIT DATE: 01/17/2017 Consultation DISCHARGE DATE: FAMILY PHYSICIAN: Carlton Lopes MD ATTENDING PHYSICIAN: KHALID,CORREA A HEENT: Atraumatic, normocephalic. Pupils are round and reactive. Nonicteric sclerae. CHEST: Clear. However, poor inspiratory effort in view of recent thoracentesis. HEART: S1, S2, normal. ABDOMEN: Soft and distended with mild diffuse tenderness. Bowel sounds are present. EXTREMITIES: Revealing 2+ pitting edema. NEUROLOGIC: Awake, alert, and appropriate without any focal deficits. LABORATORY DATA: Revealing a total white cell count of 9.4, hemoglobin of 6.9, platelets of 324,000. BUN of 8, creatinine 1.8. CT scan of the abdomen was ordered and is pending. ASSESSMENT AND PLAN: A 56-year-old female with multiple comorbidities, chronic renal failure, history of colon polyps, and slight drop in hemoglobin with acute illness, more than likely secondary to underlying stress induced gastritis or upper gastrointestinal lesion. However, there is no evidence of acute gastrointestinal bleed as manifested by normal BUN and brown stools. We will treat her medically with high dose proton pump inhibitor and consider upper endoscopy if her hemoglobin continues to drop. Await the results of CT scan of the abdomen. Thank you for this consult. FARSHAD PEGUERO MD AM/jessica /[id number] d: 01/18/17 1103 t: 01/20/17 0743, CONSULTATION REPORT
--- NOTE | ~2017-01-17 | CON ---
PATIENT'S NAME: YVON ZIMMERMAN [facility] AGE: 56 Y [address] ROOM: [address] [place] [address] LOCATION: GICU ADMIT DATE: 01/17/2017 Consultation DISCHARGE DATE: FAMILY PHYSICIAN: Carlton Lopes MD ATTENDING PHYSICIAN: SUNNY COOK DATE OF CONSULTATION: 01/17/2017 REFERRING PHYSICIAN: Sunny Cook MD REASON FOR CONSULTATION: End-stage renal disease and altered mental status. HISTORY OF PRESENT ILLNESS: A 56-year-old lady with a history of end-stage renal disease, secondary to diabetic nephropathy, recently switched to hemodialysis as an outpatient, currently, fdc resident who presented to ER with altered mental status and found to have low fingerstick blood sugar level in 50s. Mental status slowly started to improve after D50 injection; however, during the evaluation at the ER, on routine chest x-ray, the patient was found to have a left 7th rib fracture along with underlying opacity, which might represent infiltrate versus contusion versus pleural effusion or in combination. The patient was admitted for further evaluation and management. Nephrology consultation has been called for ESRD and dialysis management. The patient generally goes to our [facility] as per Friday, , and Friday schedule. Reportedly, the patient was on peritoneal dialysis from early 2016; however, the patient was noncompliant and was frequently bypassing cycles in the PD due to abdominal pain. Her recent adequacy was found to be 1.1 and then the patient was switched to hemodialysis on last hospital admission. The patient's last dialysis was yesterday. However, during hospital admission due to logistic issues, we would like to dialyze her as per Friday, Friday, and Friday schedule and we did dialyze her today. The patient was seen and examined on dialysis. The patient was tolerating HD well without any significant hemodynamic abnormality or neurological complications. The patient during my evaluation appears to be alert and answering appropriately with full sentences. Her both son was present at the bedside and all the questions answered. Currently, denies any chest pain, shortness of breath, nausea, vomiting, or diarrhea. She has no fever, chills, or rigor. REVIEW OF SYSTEMS: GENERAL: No fever. No chills or rigor. HEENT: No sore throat. No sinus congestion. CVS: No chest pain. No exertional shortness of breath. No leg swelling. RESPIRATORY: No shortness of breath. No cough. No wheezing. GENITOURINARY: No pain with urination. No increased frequency. No nocturia. GASTROINTESTINAL: No abdominal pain. No abdominal distention. No nausea or vomiting. NEUROLOGIC: No new numbness or tingling. The patient has altered mental status as mentioned in the HPI, but during my evaluation, has significant improvement in mental status and answering questions appropriately and appears to be oriented x3. SKIN: No rash. No itching. ALLERGIES: No seasonal allergy. No hayfever. ENDOCRINE: No heat intolerance. No cold intolerance. PSYCHIATRIC: No sadness. No crying spells. No history of panic attack.PATIENT'S NAME: YVON ZIMMERMAN [facility] AGE: 56 Y [address] ROOM: [place] [address] LOCATION: [facility] ADMIT DATE: 01/17/2017 Consultation DISCHARGE DATE: FAMILY PHYSICIAN: Carlton Lopes MD ATTENDING PHYSICIAN: SUNNY COOK PAST MEDICAL HISTORY: 1. Type 2 diabetes, on insulin pump. 2. End-stage renal disease. 3. Diabetic nephropathy. 4. Hypothyroidism. 5. Renovascular hypertension. 6. Osteoporosis. FAMILY HISTORY: Noncontributory. No history of kidney disease or dialysis in the family. SOCIAL HISTORY: Denies smoking or alcohol abuse. No illicit drugs. Currently, lives in a fdc, continues to work despite dialysis in the past, but currently in fdc as mentioned above. MEDICATIONS: As per the chart. ALLERGIES: NO KNOWN DRUG ALLERGIES. PAST SURGICAL HISTORY: The patient has a tunneled dialysis catheter placement on the last hospital admission, status post right hip fracture, status post open reduction and internal fixation, a few years ago, and in the past. PHYSICAL EXAMINATION: VITAL SIGNS: Blood pressure 160s/80s, pulse 80 to 90, respiratory rate 18, afebrile. GENERAL: Not in apparent distress. HEAD: Moist mucous membranes. Bilateral PERRLA, EOMI. NECK: No JVD, thyromegaly or lymphadenopathy. CVS: S1 and S2 normal, regular rate and rhythm. No murmur, rub, gallop. CHEST: Decreased breath sounds at left base. Few crackles on the left-side. ABDOMEN: Soft, nontender, nondistended. Bowel sounds present. EXTREMITIES: No cyanosis, clubbing, jaundice. No dependent edema. MUSCULOSKELETAL: No limitation of range of motion. SKIN: No pallor, cyanosis, icterus. PROJECTION TECHNICIAN: Alert and oriented x3. No gross findings. LABORATORY DATA: ABG 7.47, 43, 64, 31. Lactate 3. CBC: WBC 10.9, hemoglobin 9.1. Chemistry: Sodium 137, potassium 3.7, chloride 101, bicarbonate 28, BUN 15, creatinine 2.6, glucose 115, calcium 7.7, and albumin 2.1.PATIENT'S NAME: YVON ZIMMERMAN [facility] AGE: 56 Y [address] ROOM: [address] [address] LOCATION: [facility] ADMIT DATE: 01/17/2017 Consultation DISCHARGE DATE: FAMILY PHYSICIAN: Carlton Lopes MD ATTENDING PHYSICIAN: SUNNY COOK ASSESSMENT AND PLAN: 1. End-stage renal disease, recently switched to hemodialysis: The patient was on peritoneal dialysis in the past. Presumable etiology is diabetic nephropathy. Today, the patient got dialyzed for logistic issues as we do not have enough support over the weekend. The patient will get dialyzed on 4K bath for 4 hours with no ultrafiltrate, tolerated well, we dialyzed as per Friday, Friday, and Friday schedule while in the hospital. 2. Altered mental status, possibly related to hypoglycemia, improving currently after D50 injection. CT head which has been done is negative. 3. Left pleural effusion, got drained by Dr. Campoverde at bedside, and found to have 800 mL of serosanguineous fluid. 4. Left lower lobe consolidation versus contusion. The patient got vancomycin, Zosyn, and Levaquin especially considering the patient is a fdc resident. 5. Left 7th rib fracture. We will defer further management to the primary and currently has no significant pain and no significant history of fall. 6. Anemia of chronic disease. The patient got Mircera as an outpatient in the Outpatient Unit. Currently, hemoglobin is 9.1. We will give EPO 4000 units on each hemodialysis. Thank you for allowing me to participate in this patient's care. We will closely monitor the patient's progress along with you. MD ALEJANDRO LALA/jessica /[id number] d: 01/18/17 0127 t: 01/22/17 1356, CONSULTATION REPORT
--- NOTE | ~2017-01-17 | CON ---
PATIENT'S NAME: YVON CALLOWAY [facility] AGE: 56 Y [address] ROOM: [place] [address] LOCATION: GPCU ADMIT DATE: 01/17/2017 Consultation DISCHARGE DATE: 01/23/2017 FAMILY PHYSICIAN: Carlton Lopes MD ATTENDING PHYSICIAN: Patricio Cook DATE OF CONSULTATION: 01/21/2017 REFERRING PHYSICIAN: Kristyn Eason MD HISTORY OF PRESENT ILLNESS: Ms. Calloway is a 56-year-old white female, diabetic and renal failure. She is known to have osteoporosis and has had previous hip fracture. Was involved in an incident on 12/02/2016 when she fell at the [facility] in [place], had injuries to her pelvis and low back, and found to have fractures of lumbar 4, lumbar 5, and bilateral sacral ala fractures. She was placed at rest until comfortable, then mobilized, has had difficulties with pain control. Has been on a fentanyl patch, was taking Neurontin, perhaps some other narcotics as well. Was admitted with decreased level of conscious, not clear if entirely from a low blood sugar or if narcotics were involved as well, but her pain has been difficult to control. Denies any loss of bowel or bladder function. Denies any numbness when she wipes herself off. Good strength in her legs. Some pain radiating down the legs. No new injuries. MEDICATIONS: See list. ALLERGIES: NONE KNOWN. PAST MEDICAL HISTORY: Diabetes, renal failure, hypothyroidism, hypertension, osteoporosis. SOCIAL HISTORY: Does not smoke or drink. REVIEW OF SYSTEMS: As above. FAMILY MEDICAL HISTORY: Remarkable for cancer. PERSONAL AND SOCIAL HISTORY: At [facility] and on renal dialysis schedule. . Family lives in [place]. 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 PATIENT'S NAME: YVON CALLOWAY [facility] AGE: 56 Y [address] ROOM: [place] [address] LOCATION: GPCU ADMIT DATE: 01/17/2017 Consultation DISCHARGE DATE: 01/23/2017 FAMILY PHYSICIAN: Carlton Lopes MD ATTENDING PHYSICIAN: Patricio Cook PHYSICAL EXAMINATION: GENERAL: White female, somewhat sleepy, minimal distress. NECK: Nontender. MUSCULOSKELETAL: Low back is tender. Sacrum is tender. Hips move without pain. Good strength in both lower extremities. Sensation is intact. HEART: Pulse rate is regular. LUNGS: Able to take in a deep breath. ABDOMEN: Soft and nontender. X-RAY: Upright x-rays of the thoracic spine showed the old severe compression fracture of lumbar 1, which has healed. X-ray of the lumbar spine showed the lumbar 1 fracture again and also minimal endplate fractures of lumbar 4 and lumbar 5 without significant change. However, the sacrum, the transverse portion between the bilateral sacral fractures, is showing progressive deformity. There is translation almost a full width of the sacral body when she stands up. AP x-ray of the pelvis, no vertical instability. ASSESSMENT AND PLAN: Nonhealing unstable fracture of the sacrum with significant pain. The pain has been difficult to control, may have contributed to her comatose-type presentation to the emergency room. Worried of developing a cauda equina syndrome, we will place at bedrest now and hopefully will see some stabilization; however, after almost two months, this remains unstable, nonhealing, and painful. Relative indication for surgery but extremely high risk not only with her osteoporosis but with her unstable diabetes and renal failure. If continually has side effects from pain medications and cannot control the pain, placement of an intrathecal pain pump could be a consideration as well. We will make nonweightbearing for now and then follow up in the office. Surgery would certainly be a last resort and with very high risk of significant complications including . GIBRAN BRODY MD DPM/modl /[id number] d: 01/23/177 t: 01/25/17 0831, CONSULTATION REPORT
--- NOTE | ~2017-01-17 | HP ---
PATIENT'S NAME: YVON ZIMMERMAN [facility] AGE: 56 Y [address] ROOM: [place] [address] LOCATION: GICU ADMIT DATE: 01/17/2017 History & Physical DISCHARGE DATE: FAMILY PHYSICIAN: Carlton Lopes MD ATTENDING PHYSICIAN: SUNNY RODRIGUEZ DATE OF SERVICE: CHIEF COMPLAINT: Altered mental status. HISTORY OF PRESENT ILLNESS: A 56-year-old lady with a past medical history of end-stage renal disease, recently converted to hemodialysis, a brittle type 1 diabetic with very labile blood glucose level, resident of a nursing facility, was recently discharged from our facility because of the pelvic fractures and pain control, was found unresponsive this morning by the nursing staff at the nursing facility and was transferred here for further care. At the nursing facility, blood glucose levels were found to be in the 50s. She was given two amps of D50 here in the emergency department and a dose of Narcan because she had a fentanyl patch on her. On my encounter, she is hard to wake but she woke up a little drowsy but answering questions appropriately. She does not remember anything from last night or from yesterday. At this point, she stated that she is very cold, denied any fever though. She denied any chest pain, any shortness of breath, any cough, any sputum production, any abdominal pain, does not know if she has any swelling in the extremities. Does not make any urine. Did not endorse having any diarrhea or any constipation. She on further inquiry, denied any headache or any dizziness at this point. REVIEW OF SYSTEMS: All of the systems reviewed were negative except what is mentioned in the HPI. ALLERGIES: NO KNOWN DRUG MEDICAL ALLERGIES. PAST MEDICAL HISTORY: End-stage renal disease, on hemodialysis now, type 1 diabetic on insulin, hypothyroidism, hypertension, pelvic fracture. MEDICATIONS: Home medications are being reconciled right now. SOCIAL HISTORY: No ongoing toxic habits. Lives in a nursing facility. PATIENT'S NAME: YVON ZIMMERMAN [facility] AGE: 56 Y [address] ROOM: [place] [address] LOCATION: GICU ADMIT DATE: 01/17/2017 History & Physical DISCHARGE DATE: FAMILY PHYSICIAN: Carlton Lopes MD ATTENDING PHYSICIAN: SUNNY RODRIGUEZ PAST SURGICAL HISTORY: Status post right hip fracture ORIF, status post C section. FAMILY HISTORY: Mother had respiratory issues. PHYSICAL EXAMINATION: VITAL SIGNS: Heart rate 79, saturating 95% on room air, blood pressure 170/85, afebrile. GENERAL: Drowsy but alert and oriented x2, no acute distress. Looks lethargic, making intelligent conversation. HEENT: Pupils equally round and reactive to light. Extraocular muscles intact. CARDIOVASCULAR: Regular rate and rhythm. There is a normal S1, S2. Systolic ejection murmur at the aortic region I appreciated. LUNGS: Decreased air entry in the left lower lobe associated with crepitations. Right lung is clear to auscultation. ABDOMEN: Soft, nontender, nondistended. Bowel sounds are present. EXTREMITIES: Does show +2 extremity edema. SKIN: No ulcer, rash, or cyanosis. MUSCULOSKELETAL: No muscle tenderness noted. No joint swelling noted. NEUROLOGICAL: Grossly nonfocal. ENDOCRINE: No Cushingoid features or thyromegaly noted. LYMPHATICS: No lymphadenopathy or lymphangitis noted. DIAGNOSTIC DATA: Workup done in the emergency department included a CT of the head due to altered mental status. It was grossly unremarkable. Chest x-ray was done, which on my read showed a left lower lobe pleural effusion and consolidation. Hemodialysis tunnelled catheter is in place. No other obvious remarkable findings. I was conveyed by the emergency room physician there is a left- sided rib fracture as well. We will wait for the official report for that. Lab work, ABG was done, which showed pH of 7.47, pCO2 43, PO2 of 64, saturating 93% on room air. Lactic acid initially was 1.2. Glucose on arrival to the hospital was 58, chu to 117 on the 2nd day after administration of D50. Troponin is negative. CBC was remarkable only for hemoglobin of 9.1 and platelet of 488. Chemical panel, creatinine was 2.6, BUN of 15, alkaline phosphatase of 250, and bilirubin of 0.2. Procalcitonin was elevated at 2.58. ASSESSMENT/PLAN: 1. Healthcare-associated pneumonia. 2. Very likely left parapneumonic effusions. 3. Acute metabolic encephalopathy. PATIENT'S NAME: YVON ZIMMERMAN [facility] AGE: 56 Y [address] ROOM: [address] [place], [place] [address] LOCATION: [facility] ADMIT DATE: 01/17/2017 History & Physical DISCHARGE DATE: FAMILY PHYSICIAN: Carlton Lopes MD ATTENDING PHYSICIAN: SUNNY RODRIGUEZ 4. Hypoglycemia. 5. Left rib fracture. 6. End-stage renal disease, on hemodialysis. 7. Type 1 diabetes. 8. Hypothyroidism. PLAN: We are going to admit this patient to ICU. Broad-spectrum antibiotics for healthcare-associated pneumonia with vancomycin, Levaquin, and Zosyn are being administered. Urine Streptococcal and Legionella antigen will be tested. If possible, we will obtain sputum cultures as well. Blood cultures have been obtained. She will need a pleural tap. We will assess the pleural effusion with ultrasonography and we will consider pulmonary consultation if needed. A repeat lactic acid level. For hypoglycemia she already has received 2 amps of D50. We will continue her on D50, normal saline, and she appears dry on the physical exam. Nephrology consultation for dialysis in the morning. Continuous blood glucose monitoring every hour. Intermittent naloxone doses. End-tidal monitoring. The patient is full code. C. diff assay for diarrhea. MD SAE SINHA/jessica /[id number] D: [id number] T: [id number] HISTORY & PHYSICAL
[~2017-01-17 07:08] MED LIST changes: -ASPIRIN LO-DOSE81 MG PO; -DULCOLAX10 MG R; -EPOGEN (2020000 UNIT SUB-Q; -GLUCAGON 1 MG PE1 MG SUB-Q; -GLUCOSE4 GM PO; -LEVAQUIN500 MG PO; -MILK OF MA400 MG/5 M PO; -ONDANSETRON ODT4 MG SL; -PHOSLO667 MG PO; -TUMS REGULAR ST1 TAB PO; -TYLENOL325 MG PO; -VITAMIN D250000 UNIT PO
[2017-01-17 07:35] LABS: BICARBONATE 31.3 mmol/L (18.0-23.0); PCO2 43 mmHg (35-45); PO2 64 mmHg (80-90)
[2017-01-17 08:03] LABS: BASOPHIL % 0.3 %; EOSINOPHIL # 0.1 K/uL (0.0-0.5); EOSINOPHIL % 0.5 %; HEMATOCRIT 28.3 % (33.0-46.0); HEMOGLOBIN 9.1 g/dL (10.0-15.0); IMMATURE GRANULOCYTE # 0.1 K/uL (0.0-0.3); IMMATURE GRANULOCYTE % 0.9 %; LYMPHOCYTE # 0.8 K/uL (0.8-4.0); LYMPHOCYTE % 7.6 %; MCH 28.3 pg (27.0-34.0); MCHC 32.2 gm/dL (32.0-36.5); MCV 87.9 fl (83.0-98.0); MONOCYTE # 1.1 K/uL (0.0-1.0); MONOCYTE % 10.3 %; MPV 9.5 fl (9.4-12.4); NEUTROPHIL # (ANC) 8.8 K/uL (1.8-7.8); NEUTROPHIL % 80.4 %; NRBC % 0 /100WBC (0-0.00); RBC 3.22 M/uL (3.50-5.50); WBC 10.9 K/uL (4.0-11.0)
[2017-01-17 08:07] LABS: PLATELET COUNT 488 K/uL (150-450); RDW-CV 17.2 % (11.9-14.6)
[2017-01-17 08:17] LABS: INR - (THERAPEUTIC) 0.96 (0.92-1.07); PROTIME 10.1 SECONDS (9.8-11.4); PTT 29 SECONDS (25-32)
[2017-01-17 08:27] LABS: ALBUMIN 2.1 gm/dL (3.5-5.0); ALK PHOS 250 IU/L (33-138); ALT 32 IU/L (12-78); ANION GAP 11.7 (10.0-19.0); AST 33 IU/L (10-40); BLOOD UREA NITROGEN 15 mg/dL (6-24); CALCIUM 7.7 mg/dL (8.5-10.5); CHLORIDE 101 mMol/L (96-110); CO2 28 mMol/L (22-32); CPK 28 IU/L (21-215); CREATININE 2.6 mg/dL (0.5-1.1); POTASSIUM 3.7 mMol/L (3.7-5.1); SODIUM 137 mMol/L (135-145); TOTAL PROTEIN 6.5 g/dL (6.0-8.4)
[2017-01-17 08:28] LABS: TOTAL BILIRUBIN 0.2 mg/dL (0.0-1.5)
[2017-01-17] MEDS ORDERED: TUMS REGULAR ST1 TAB PO (14:43)
[2017-01-17] MEDS ORDERED: DRISDOL 5050000 UNIT PO (14:46)
[2017-01-17] MEDS ORDERED: PHOSLO667 MG PO (15:08)
[2017-01-17] MEDS ORDERED: TYLENOL325 MG PO (15:14)
[2017-01-17] MEDS ORDERED: DULCOLAX10 MG R (15:15)
[2017-01-17] MEDS ORDERED: GLUCOSE4 GM PO (15:16)
[2017-01-17] MEDS ORDERED: MILK OF MA400 MG/5 M PO (15:18)
[2017-01-17] MEDS ORDERED: ONDANSETRON ODT4 MG SL (15:20)
[2017-01-17] MEDS ORDERED: LEVEMIR FL100 UNIT/1 SUB-Q (15:24)
[2017-01-17 17:23] LABS: HEMOGLOBIN 7.3 g/dL (10.0-15.0)
[2017-01-17 19:17] LABS: HEMOGLOBIN 7.4 g/dL (10.0-15.0)
[2017-01-18 05:23] LABS: BASOPHIL % 0.1 %; EOSINOPHIL % 0.3 %; HEMATOCRIT 21.5 % (33.0-46.0); IMMATURE GRANULOCYTE # 0.1 K/uL (0.0-0.3); IMMATURE GRANULOCYTE % 1.2 %; LYMPHOCYTE # 0.9 K/uL (0.8-4.0); LYMPHOCYTE % 9.2 %; MCV 88.8 fl (83.0-98.0); MONOCYTE # 0.9 K/uL (0.0-1.0); MONOCYTE % 9.7 %; MPV 9.5 fl (9.4-12.4); NEUTROPHIL # (ANC) 7.5 K/uL (1.8-7.8); NEUTROPHIL % 79.5 %; NRBC % 0 /100WBC (0-0.00); RBC 2.42 M/uL (3.50-5.50); RDW-CV 17.2 % (11.9-14.6); WBC 9.4 K/uL (4.0-11.0)
[2017-01-18 05:24] LABS: HEMOGLOBIN 6.9 g/dL (10.0-15.0); MCH 28.5 pg (27.0-34.0); MCHC 32.1 gm/dL (32.0-36.5)
[2017-01-18 05:25] LABS: PLATELET COUNT 324 K/uL (150-450)
[2017-01-18 05:44] LABS: ALBUMIN 2.5 gm/dL (3.5-5.0); ANION GAP 13.5 (10.0-19.0); CALCIUM 7.5 mg/dL (8.5-10.5); CREATININE 1.8 mg/dL (0.5-1.1); POTASSIUM 4.5 mMol/L (3.7-5.1); TOTAL PROTEIN 5.7 g/dL (6.0-8.4)
[2017-01-18 05:46] LABS: TOTAL BILIRUBIN 0.4 mg/dL (0.0-1.5)
[2017-01-18 10:44] LABS: HEMATOCRIT 22.5 % (33.0-46.0); HEMOGLOBIN 7.2 g/dL (10.0-15.0)
[2017-01-18 15:09] LABS: HEMATOCRIT 26.2 % (33.0-46.0); HEMOGLOBIN 8.3 g/dL (10.0-15.0)
[2017-01-18 18:53] LABS: HEMATOCRIT 22.8 % (33.0-46.0)
[2017-01-18 18:54] LABS: HEMOGLOBIN 7.3 g/dL (10.0-15.0)
[2017-01-18 23:10] LABS: HEMATOCRIT 22.1 % (33.0-46.0)
[2017-01-19 04:40] LABS: BASOPHIL % 0.3 %; EOSINOPHIL # 0.2 K/uL (0.0-0.5); EOSINOPHIL % 1.4 %; HEMATOCRIT 22.5 % (33.0-46.0); IMMATURE GRANULOCYTE # 0.1 K/uL (0.0-0.3); IMMATURE GRANULOCYTE % 0.9 %; LYMPHOCYTE # 1.4 K/uL (0.8-4.0); LYMPHOCYTE % 12.9 %; MCH 27.6 pg (27.0-34.0); MCHC 31.1 gm/dL (32.0-36.5); MCV 88.6 fl (83.0-98.0); MONOCYTE # 0.9 K/uL (0.0-1.0); MONOCYTE % 8.3 %; MPV 9.1 fl (9.4-12.4); NEUTROPHIL # (ANC) 8.1 K/uL (1.8-7.8); NEUTROPHIL % 76.2 %; NRBC % 0 /100WBC (0-0.00); PLATELET COUNT 375 K/uL (150-450); RBC 2.54 M/uL (3.50-5.50); RDW-CV 17.4 % (11.9-14.6); WBC 10.6 K/uL (4.0-11.0)
[2017-01-19 11:18] LABS: HEMATOCRIT 24.6 % (33.0-46.0)
[2017-01-19 11:20] LABS: HEMOGLOBIN 7.9 g/dL (10.0-15.0)
[2017-01-19 14:58] LABS: HEMATOCRIT 24.3 % (33.0-46.0)
[2017-01-19 14:59] LABS: HEMOGLOBIN 7.8 g/dL (10.0-15.0)
[2017-01-20 04:53] LABS: BASOPHIL % 0.1 %; EOSINOPHIL # 0.2 K/uL (0.0-0.5); EOSINOPHIL % 1.2 %; HEMATOCRIT 22.3 % (33.0-46.0); IMMATURE GRANULOCYTE # 0.2 K/uL (0.0-0.3); IMMATURE GRANULOCYTE % 1.5 %; LYMPHOCYTE # 1.1 K/uL (0.8-4.0); LYMPHOCYTE % 8.5 %; MCH 27.8 pg (27.0-34.0); MCHC 31.8 gm/dL (32.0-36.5); MCV 87.5 fl (83.0-98.0); MONOCYTE # 1.2 K/uL (0.0-1.0); MONOCYTE % 8.8 %; MPV 9.6 fl (9.4-12.4); NEUTROPHIL # (ANC) 10.7 K/uL (1.8-7.8); NEUTROPHIL % 79.9 %; NRBC % 0 /100WBC (0-0.00); PLATELET COUNT 444 K/uL (150-450); RBC 2.55 M/uL (3.50-5.50); RDW-CV 17.4 % (11.9-14.6); WBC 13.4 K/uL (4.0-11.0)
[2017-01-20 04:54] LABS: HEMOGLOBIN 7.1 g/dL (10.0-15.0)
[2017-01-20 05:16] LABS: ANION GAP 16.2 (10.0-19.0); POTASSIUM 4.2 mMol/L (3.7-5.1)
[2017-01-21 08:26] LABS: MPV 9.9 fl (9.4-12.4)
[2017-01-21 09:19] LABS: BASOPHIL % 0.2 %; EOSINOPHIL % 0.3 %; IMMATURE GRANULOCYTE # 0.2 K/uL (0.0-0.3); IMMATURE GRANULOCYTE % 1.5 %; MONOCYTE # 0.5 K/uL (0.0-1.0); MONOCYTE % 3.8 %; NEUTROPHIL % 87.2 %; NRBC % 0 /100WBC (0-0.00)
[2017-01-21 09:22] LABS: HEMATOCRIT 23.2 % (33.0-46.0); HEMOGLOBIN 7.3 g/dL (10.0-15.0); MCH 28.3 pg (27.0-34.0); MCHC 31.5 gm/dL (32.0-36.5); MCV 89.9 fl (83.0-98.0); PLATELET COUNT 442 K/uL (150-450); RBC 2.58 M/uL (3.50-5.50); RDW-CV 17.8 % (11.9-14.6)
[2017-01-21 09:30] LABS: WBC 13.7 K/uL (4.0-11.0)
[2017-01-21 09:42] LABS: ALBUMIN 2.5 gm/dL (3.5-5.0); ANION GAP 20.2 (10.0-19.0); CALCIUM 7.4 mg/dL (8.5-10.5); POTASSIUM 4.2 mMol/L (3.7-5.1); TOTAL PROTEIN 6.6 g/dL (6.0-8.4)
[2017-01-21 09:43] LABS: TOTAL BILIRUBIN 0.4 mg/dL (0.0-1.5)
[2017-01-21 23:21] LABS: BASOPHIL % 0.1 %; EOSINOPHIL # 0.1 K/uL (0.0-0.5); EOSINOPHIL % 0.5 %; HEMATOCRIT 22.4 % (33.0-46.0); HEMOGLOBIN 7.3 g/dL (10.0-15.0); IMMATURE GRANULOCYTE # 0.5 K/uL (0.0-0.3); IMMATURE GRANULOCYTE % 3.3 %; LYMPHOCYTE # 1.5 K/uL (0.8-4.0); LYMPHOCYTE % 9.8 %; MCH 28.4 pg (27.0-34.0); MCHC 32.6 gm/dL (32.0-36.5); MCV 87.2 fl (83.0-98.0); MONOCYTE # 1.2 K/uL (0.0-1.0); MONOCYTE % 7.7 %; MPV 9.3 fl (9.4-12.4); NEUTROPHIL # (ANC) 11.9 K/uL (1.8-7.8); NEUTROPHIL % 78.6 %; NRBC % 0 /100WBC (0-0.00); PLATELET COUNT 414 K/uL (150-450); RBC 2.57 M/uL (3.50-5.50); RDW-CV 17.4 % (11.9-14.6); WBC 15.1 K/uL (4.0-11.0)
[2017-01-21 23:36] LABS: ALBUMIN 2.6 gm/dL (3.5-5.0); ANION GAP 15.8 (10.0-19.0); CALCIUM 8.1 mg/dL (8.5-10.5); CREATININE 3.6 mg/dL (0.5-1.1); POTASSIUM 3.8 mMol/L (3.7-5.1); TOTAL PROTEIN 6.7 g/dL (6.0-8.4)
[2017-01-21 23:38] LABS: TOTAL BILIRUBIN 0.3 mg/dL (0.0-1.5)
[2017-01-22 06:23] LABS: BASOPHIL # 0.1 K/uL (0.0-0.2); BASOPHIL % 0.3 %; EOSINOPHIL % 0.1 %; HEMATOCRIT 24.8 % (33.0-46.0); HEMOGLOBIN 8.1 g/dL (10.0-15.0); IMMATURE GRANULOCYTE # 0.4 K/uL (0.0-0.3); IMMATURE GRANULOCYTE % 2.4 %; LYMPHOCYTE # 1.2 K/uL (0.8-4.0); LYMPHOCYTE % 7.4 %; MCH 28.2 pg (27.0-34.0); MCHC 32.7 gm/dL (32.0-36.5); MCV 86.4 fl (83.0-98.0); MONOCYTE % 6.7 %; MPV 9.4 fl (9.4-12.4); NEUTROPHIL % 83.1 %; NRBC % 0.1 /100WBC (0-0.00); PLATELET COUNT 494 K/uL (150-450); RBC 2.87 M/uL (3.50-5.50); RDW-CV 17.5 % (11.9-14.6); WBC 15.6 K/uL (4.0-11.0)
[2017-01-22 07:03] LABS: ALBUMIN 2.6 gm/dL (3.5-5.0); ANION GAP 16.5 (10.0-19.0); CALCIUM 7.8 mg/dL (8.5-10.5); CREATININE 3.7 mg/dL (0.5-1.1); POTASSIUM 4.5 mMol/L (3.7-5.1); TOTAL BILIRUBIN 0.3 mg/dL (0.0-1.5); TOTAL PROTEIN 6.9 g/dL (6.0-8.4)
[2017-01-22 16:05] LABS: BASOPHIL % 0.1 %; EOSINOPHIL % 0.1 %; HEMATOCRIT 23.4 % (33.0-46.0); IMMATURE GRANULOCYTE # 0.2 K/uL (0.0-0.3); IMMATURE GRANULOCYTE % 1.5 %; LYMPHOCYTE # 1.2 K/uL (0.8-4.0); LYMPHOCYTE % 8.1 %; MCH 28.6 pg (27.0-34.0); MCHC 32.5 gm/dL (32.0-36.5); MONOCYTE # 1.2 K/uL (0.0-1.0); MONOCYTE % 7.7 %; MPV 9.3 fl (9.4-12.4); NEUTROPHIL # (ANC) 12.5 K/uL (1.8-7.8); NEUTROPHIL % 82.5 %; NRBC % 0.2 /100WBC (0-0.00); PLATELET COUNT 408 K/uL (150-450); RBC 2.66 M/uL (3.50-5.50); RDW-CV 17.6 % (11.9-14.6); WBC 15.2 K/uL (4.0-11.0)
[2017-01-22 16:06] LABS: HEMOGLOBIN 7.6 g/dL (10.0-15.0)
[2017-01-22 16:28] LABS: ALBUMIN 2.5 gm/dL (3.5-5.0); ANION GAP 15.2 (10.0-19.0); CALCIUM 7.7 mg/dL (8.5-10.5); POTASSIUM 4.2 mMol/L (3.7-5.1); TOTAL BILIRUBIN 0.3 mg/dL (0.0-1.5); TOTAL PROTEIN 6.7 g/dL (6.0-8.4)
[2017-01-23] MEDS ORDERED: LEVAQUIN500 MG PO (13:07)
[2017-01-23] MEDS ORDERED: EPOGEN (2020000 UNIT SUB-Q (13:10)
[2017-01-23] MEDS ORDERED: GLUCAGON 1 MG PE1 MG SUB-Q (13:13)
== END 2017-01-23 14:20 | DRG 637 ==
LOC: GMED 07:08 → GICU 09:02 → GPCU 01-20 22:44
PROVIDERS: Family Medicine; Hospitalist; Internal Medicine; ADMIT Internal Medicine
PROC: 0W9B3ZX Drainage of Left Pleural Cavity, Percutaneous Approach, Diagnostic (ICD-10-PCS; principal; 2017-01-17)
DX: E10.649 Type 1 diabetes mellitus with hypoglycemia without coma (principal); J18.9 Pneumonia, unspecified organism; G93.41 Metabolic encephalopathy; J90 Pleural effusion, not elsewhere classified; N18.6 End stage renal disease; I12.0 Hypertensive chronic kidney disease with stage 5 chronic kidney disease or end stage renal disease; S22.32XA Fracture of one rib, left side, initial encounter for closed fracture; E10.21 Type 1 diabetes mellitus with diabetic nephropathy; E03.9 Hypothyroidism, unspecified; K29.70 Gastritis, unspecified, without bleeding; M81.0 Age-related osteoporosis without current pathological fracture; D63.1 Anemia in chronic kidney disease
CPT/HCPCS: C9113; J0360; J0696; J1644; J1956; J2310; J2405; J2543; J3370; J3480; J7030; J7040; J7042; J7050; P9047; Q4081; Q9967

== ENCOUNTER → 2017-01-17 | Outpatient (CLI) | payer BC | END | disposition disaster alternative care site (69) | LOC: GAMB 06:46 | DX: E11.641 Type 2 diabetes mellitus with hypoglycemia with coma (principal); Z99.2 Dependence on renal dialysis; Z79.899 Other long term (current) drug therapy | CPT/HCPCS: A0422; A0425; A0427; J3360 ==

== ENCOUNTER 2017-01-25 23:27 | Inpatient (IN) | payer BC ==
[~2017-01-25] VITALS: Ht 160 cm; Wt 57.6 kg
--- NOTE | ~2017-01-25 | ER ---
PATIENT'S NAME: YVON ZIMMERMAN [facility] AGE: 56 Y [address] ROOM: [place] [address] LOCATION: GPCU ADMIT DATE: 01/26/2017 ER/Outpatient Report DISCHARGE DATE: FAMILY PHYSICIAN: MILIND MARTINEZ MD ATTENDING PHYSICIAN: Joy BEE Admission date and time documented in medical record. I saw the patient at 2340 hours. CHIEF COMPLAINT: Fever with nausea, vomiting, some mild chills, is an insulin-dependent diabetic type 1 very labile. HISTORY OF PRESENT ILLNESS: This patient is a 56-year-old female, who has been ill for the past 24 hours. She has had intermittent fever, greater than 101 along with some nausea and vomiting. No diarrhea. No chest pain, shortness of breath, cough, cold, flus. No abdominal pain. No diarrhea. No urinary frequency, urgency, or dysuria. The patient is an end-stage renal failure patient on hemodialysis along with her insulin-dependent diabetes mellitus type 1 that is very labile. No fall or trauma. No headache, eyes, ears, nose, throat, neck, or spine pain. A little bit lightheaded and dizzy, but no syncope or near syncope. No joint or muscle swelling, redness, or pain. No skin eruptions or rash. Does have hypothyroidism along with insulin-dependent diabetes mellitus. No neuro changes. No psych issues. Has had sepsis in the past. Has an intermittent or recurrent left pleural effusion. HOME MEDICATIONS: See attached medication list. ALLERGIES: SAUSAGE. SOCIAL HISTORY: Nonsmoker, nondrinker. SIGNIFICANT PAST MEDICAL HISTORY: Hypertension, end-stage renal failure on hemodialysis, insulin-dependent diabetes mellitus type 1 very labile, anorexia, vitamin D deficiency, hypothyroidism, sepsis, pelvic fracture, left pleural effusion. OPERATIONS: Right leg pinning, peritoneal dialysis catheter placement, central dialysis catheter placement, , left thoracentesis. PATIENT'S NAME: YVON ZIMMERMAN [facility] AGE: 56 Y [address] ROOM: [place] [address] LOCATION: GPCU ADMIT DATE: 01/26/2017 ER/Outpatient Report DISCHARGE DATE: FAMILY PHYSICIAN: MILIND MARTINEZ MD ATTENDING PHYSICIAN: Joy BEE REVIEW OF SYSTEMS: All systems reviewed by me are negative with exception of those discussed in the history of present illness. PHYSICAL EXAMINATION: VITAL SIGNS: Temperature 98.9 orally, pulse 107, respirations 16, blood pressure 184/86, O2 saturation on room air is 92%. HEAD: Normocephalic. EYES, EARS, NOSE, THROAT: Clear. Mucous membranes moist. NECK: No nuchal rigidity. No thyromegaly or cervical adenopathy. No tenderness. SPINE: Nontender. No deformity. LUNGS: Clear. Good air flow, a little bit decreased in the left lower lung, but no rales, rhonchi or wheezes. HEART: Tachy. Regular. Pulses are palpable. ABDOMEN: Soft, nondistended, nontender. Good bowel tones. No organomegaly or abnormal mass palpable. EXTREMITIES: Without peripheral edema, cyanosis, or deformity. Neurovascularly intact. SKIN: Clear. No skin eruptions or rash. No skin lesions or open sores. LABORATORY DATA AND X-RAYS: Chest x-ray shows left pleural effusion, otherwise no acute infiltrate. We will review x-ray with the radiologist. ProBNP was 59040. CMS was normal except for an elevated glucose of 140, elevated creatinine 2.1, low GFR 26, alkaline phosphatase was elevated at 211. Amylase and lipase were normal. Acetone BHB was elevated at 30.6. Venous pH was 7.49. CPK was 262. Point of care cardiac enzymes were normal. CRP was 3.66. Lactate was normal at 1.5. Procalcitonin was elevated [place] 2.61[place] [address], 86 segs, 7 lymphs, 6 monos, hemoglobin was 7.1 with hematocrit of 21.9, platelet count [id number]. PTT was 24. Pro-time is 10.5 with an INR 1.0. Urine showed 2-5 whites, 0-2 reds, 0-2 epithelial cells, negative bacteria, 1+ amorphous material per high-powered field. Culture pending. Two blood cultures were drawn, results pending. EMERGENCY DEPARTMENT COURSE: I did start the patient on IV normal saline, fluids. Gave her Zofran for nausea, vomiting. IMPRESSION: 1. Febrile illness with nausea and vomiting. Etiology uncertain. However, the patient does meet sepsis criteria. Zero start time was 0030 hours on 01/26/2017. 2. Insulin-dependent diabetes mellitus type 1. PATIENT'S NAME: YVON ZIMMERMAN [facility] AGE: 56 Y [address] ROOM: [place] [address] [facility] ADMIT DATE: 01/26/2017 ER/Outpatient Report DISCHARGE DATE: FAMILY PHYSICIAN: MILIND MARTINEZ MD ATTENDING PHYSICIAN: Joy BEE 3. End-stage renal failure, on hemodialysis. 4. Anemia of chronic disease. 5. Hypothyroidism. 6. Left pleural effusion. 7. Hypertension. PLAN: I did culture the urine and blood, results pending. Discharge the patient on IV hydration fluids. Did start the patient on antibiotics, Zosyn and vancomycin. Discussed the patient with Dr. Bee, hospitalist. Dr. Bee is coming to the emergency room to evaluate the patient. We will admit the patient to the hospital for further evaluation and treatment. Discussion ensued with the patient concerning my findings and recommendations. Accumulated critical care time 30 minutes. MD ASHLYN WOLFF/modl /[id number] d: 01/26/172 t: 01/26/17 1821, OUTPATIENT REPORT
--- NOTE | ~2017-01-25 | ECHO ---
Transthoracic Echocardiography Report (TTE) Demographics Patient Name YVON ZIMMERMAN Date of Study 01/27/2017 Patient Number [id number] Visit Number [id number] Date of 1960 Room Number G6301 Accession Number [id number] Gender Female Age 56 year(s) Referring Aman Steiner MD Online Communications Manager Physician Rohit Hamilton Physician Interpreting Jose Maria Surajanjelicavalorie Crown Presser Physician Supervising Ordering Physician Rohit Hamilton MD/MLP Nurse Stress Black Top Spreader Machine Operator Conclusions Contractility Score Summary Normal Left Ventricular contractility was noted. Summary Technically difficult study with suboptimal endocardial border visualization. The estimated left ventricular ejection fraction is 60%. Diastolic assessment reveals Grade I diastolic dysfunction. The right ventricle appears thickened. Normal right ventricular systolic function. Small anterior pericardial effusion. Pleural effusion present. Clinical correlation is recommended. Procedure Type of Study TTE procedure:2D Echocardiogram. Procedure Date Date: 01/27/2017 Start: 02:03 PM Study Location: Inpatient Portable Technical Quality: Adequate visualization Indications:Endocarditis. Appropriate Use Criteria: 9 Patient Status: Routine Rhythm: Sinus tachycardia HR: 96 bpm BP: 163/75 mmHg M-Mode/2D Measurements LV Diastolic Dimension: 4.63 cm LV Systolic Dimension: 3.94 cm LV Septum Diastolic: 0.95 cm LV PW Diastolic: 0.81 cm AO Root Dimension: 2.2 cm Cardiac Output: 5.34 l/min AV Cusp Separation: 1.5 cm RV Diastolic Dimension: 1.21 cm LA volume: 38 ml IVC Inspiration: 0.98 cm LVOT: 2 cm RV Base: 2.97 cm LVOT VTI: 17.7 cm RV Mid: 3.23 cm LV Stroke volume: 55.58 ml Doppler Measurements AV Peak Velocity: 1.59 m/s MV Peak E-Wave: 1.15 m/s AV Peak Gradient: 10.11 mmHg MV Peak A-Wave: 1.25 m/s AV Mean Gradient: 5 mmHg MV E/A Ratio: 0.92 LVOT Peak Velocity: 0.79 m/s MV Deceleration Time: 190 msec TR Velocity:2.96 m/s PV Peak Velocity: 1.03 m/s TR Gradient:35.05 mmHg PV Peak Gradient: 4.24 mmHg Estimated RAP:3 mmHg Estimated PASP: 38.05 mmHg Estimated RVSP: 38 mmHg A' Septal Velocity: 0.09 m/s E' Septal Velocity: 0.07 m/s A' Lateral Velocity: 0.12 m/s E' Lateral Velocity: 0.08 m/s MV E/E' Ratio: 14 Findings Left Ventricle The estimated left ventricular ejection fraction is 60-65%. Diastolic assessment reveals Grade I diastolic dysfunction. Right Ventricle The right ventricle appears thickened. Normal right ventricular systolic function. Left Atrium Normal left atrial size. Right Atrium Normal right atrial size. Mitral Valve Mild mitral regurgitation by color Doppler. Aortic Valve The aortic valve is mildly sclerotic. Tricuspid Valve There is mild pulmonary hypertension. The pulmonary pressure (RVSP) is 38 mmHg. Pulmonic Valve No pulmonic valve regurgitation by color Doppler. Pericardial Effusion Small anterior pericardial effusion. Miscellaneous Visualized portions of the aortic root and ascending aorta appear normal in size. Pleural Effusion Pleural effusion present. Contractility Score LV regional wall motion:(0-Non visualized 1-Normal 2-Hypokinesis 3-Akinesis 4-Dyskinesis 5-Aneurysm) Signature dtt: CHRISTIANO ELLIOTT dtd: 01/27/17 1403 Physician Self Edit
--- NOTE | ~2017-01-25 | CON ---
PATIENT'S NAME: YVON ZIMMERMAN [facility] AGE: 56 Y [address] ROOM: [address] [place] [id number] LOCATION: GPCU ADMIT DATE: 01/26/2017 Consultation DISCHARGE DATE: FAMILY PHYSICIAN: MILIND MARTINEZ MD ATTENDING PHYSICIAN: Joy BEE DATE OF CONSULTATION: 01/26/2017 REFERRING PHYSICIAN: JONATHAN KNET REFERRING PHYSICIAN: Joy Bee MD REASON FOR CONSULTATION: End-stage renal disease, management of dialysis. HISTORY OF PRESENT ILLNESS: This 56-year-old female with a history of hypertension, insulin-dependent diabetes, pelvic fracture, a recent admission at [facility] with possible hypoglycemic encephalopathy, presented from senior care with fever, nausea, and vomiting. The patient was recently admitted to [facility], was discharged on , and felt that she was not feeling well even after discharge. She got dialyzed yesterday. After dialysis, when she went back to senior care, she felt fever, nausea, and vomiting, and the patient was sent to the ER. During the ER visit, the patient did not have any fever; however, did mention about some nausea, vomiting, and a few episodes of diarrhea. No hematemesis, tarry stool, or bright red blood per rectum. No complaints of chest pain, shortness of breath, productive cough, or headache. Notably, she had a history of HCAP on last hospital admission, had left-sided pleural effusion which was drained, and was found to be transudative in nature. Chest x-ray at least did not show any new infiltrate. On the left side, the pleural effusion is relatively stable. CT scan has been ordered, which is currently pending. Regarding ESRD, she is now on in-center hemodialysis as per Friday, , and Friday schedule. She was dialyzed yesterday. She has a tunneled dialysis catheter at this point. Blood culture and urine cultures have been sent from the ER, and the reports are pending. PAST MEDICAL HISTORY: 1. ESRD. 2. Type 1 diabetes mellitus. 3. Hypothyroidism. 4. Hypertension. 5. Pelvic fracture. PAST SURGICAL HISTORY: Hip surgery, peritoneal dialysis catheter placement, , and also tunneled dialysis catheter placement recently for hemodialysis. FAMILY HISTORY: Mother had renal cancer. Father has a tumor of the back. SOCIAL HISTORY: Staying in the senior care. Denies smoking or drinking. MEDICATIONS: As per the chart.PATIENT'S NAME: YVON ZIMMERMAN [facility] AGE: 56 Y [address] ROOM: [address] [place], [place] [address] [facility] AD[facility] DATE: 01/26/2017 Consultation DISCHARGE DATE: FAMILY PHYSICIAN: MILIND MARTINEZ MD ATTENDING PHYSICIAN: Joy BEE REVIEW OF SYSTEMS: GENERAL: Complaining of fever and some chills. HEENT: No sore throat. No sinus congestion. CARDIOVASCULAR: No chest pain. No exertional shortness of breath. No leg swelling. RESPIRATORY: No shortness of breath. No cough. No wheezing. GENITOURINARY: No pain with urination. No increased frequency. No nocturia. GASTROINTESTINAL: Complaining of nausea and vomiting. No hematochezia. No bright red blood per rectum or tarry stool. NEUROLOGIC: No weakness. No seizures. SKIN: No rash. No itching. ALLERGIES: No seasonal allergy. No hay fever. ENDOCRINE: No heat intolerance. No cold intolerance. PSYCHIATRIC: No sadness. No crying spells. No history of panic attack. PHYSICAL EXAMINATION: VITAL SIGNS: Blood pressure today is 160/70, pulse 100, respiratory rate 15, temperature 98.8 degrees Fahrenheit, and saturating at 92% to 94% on room air. GENERAL: Not in apparent distress. HEAD: Moist mucous membranes. Bilateral PERRLA, EOMI. NECK: No JVD, thyromegaly, or lymphadenopathy. CARDIOVASCULAR: S1 and S2 normal, regular rate and rhythm. No murmur, rub, or gallop. CHEST: Bilateral air entry equal. No wheeze or rales. ABDOMEN: Soft, nontender, and nondistended. Bowel sounds present. EXTREMITIES: No cyanosis, clubbing, or jaundice. No dependent edema. MUSCULOSKELETAL: No limitation of range of motion. SKIN: No pallor, cyanosis, or icterus. CENTRAL NERVOUS SYSTEM: Alert and oriented x3. No gross findings. LABORATORY DATA: The pH is 7.49, pCO2 of 37, and bicarbonate 28. Lactate 1.5. Troponin x1 negative. BNP 27,676. White blood cell count 15, hemoglobin 7.1, MCV 89, and platelets 312. Creatinine 2.1, sodium 138, potassium 4.3, and bicarbonate 20. CRP 3.66. Procalcitonin 2.61. Bilirubin 0.4. INR 1. ASSESSMENT AND PLAN: 1. End-stage renal disease. Currently, on in-center hemodialysis as per Friday, , and Friday schedule. Last dialysis was yesterday. Tolerated dialysis well. No indication for dialysis today. We will plan to dialyze her as per Friday, Friday, and Friday schedule while inpatient. 2. Severe sepsis, questionable etiology. Chest x-ray showed stable left lower lobe pleural effusion. No significant new infiltrate. Blood culture and urine culture negative. I do not believe this is a tunneled dialysis catheter infection; however, we will wait for the blood culture to come back before contemplating TDC removal. The patient also had some chronic changes on the CT scan around her gallbladder. So, the patient may have chronic cholecystitis. Currently, the patient has received vancomycin and Zosyn. They want to do a TTE to rule out endocarditisPATIENT'S NAME: YVON ZIMMERMAN [facility] AGE: 56 Y [address] ROOM: [place] [address] LOCATION: GPCU ADMIT DATE: 01/26/2017 Consultation DISCHARGE DATE: FAMILY PHYSICIAN: MILIND MARTINEZ MD ATTENDING PHYSICIAN: Joy BEE 3. Nausea and vomiting, possibly secondary to gastritis. Gastroenterology has already seen the patient and has started the patient on proton pump inhibitor. Plan for an EGD at a later date. 4. Diarrhea. Plan to check Clostridium difficile. 5. Brittle diabetes, type 1. Also, history of multiple episodes of hypoglycemia and encephalopathy, currently on sliding scale. They will acquire a cortisol level at 5 o'clock in the morning. 6. Hypothyroidism. The patient will continue Synthroid. 7. Hypertension. Blood pressure is slightly above the acceptable range because of the fluid resuscitation as per the sepsis protocol in an end- stage renal disease patient. We will try to dialyze her tomorrow and go for aggressive ultrafiltrate. 8. Moderate protein-calorie malnutrition. 9. Anemia, possibly anemia of chronic disease. No iron deficiency noted on the last time iron check. We will continue EPO on dialysis. 10. Pelvic fracture. Currently, nonweightbearing. Follows up with Dr. Francis for probably pinning at this point. Next appointment is on Friday. Thank you for allowing me to participate in this patient's care. We will closely monitor the patient's progress along with you. ABHISEKH MADDIE KENT MD /modl /[id number] d: 01/26/17 1155 t: 02/08/17 0931, CONSULTATION REPORT
--- NOTE | ~2017-01-25 | CON ---
PATIENT'S NAME: YVON ZIMMERMAN [facility] AGE: 56 Y [address] ROOM: [address] [address] LOCATION: GPCU ADMIT DATE: 01/26/2017 Consultation DISCHARGE DATE: FAMILY PHYSICIAN: MILIND MARTINEZ MD ATTENDING PHYSICIAN: Joy LOWE DATE OF CONSULTATION: 01/27/2017 REFERRING PHYSICIAN: JONATHAN KENT REASON FOR CONSULTATION: Elevated white blood count. HISTORY OF PRESENT ILLNESS: The patient is a 56-year-old female who has type 1 diabetes mellitus who has been on dialysis. She has been having some issues in the recent past. She fell and fractured her pelvis at the end of November, approximately December 18. She was seen here at [facility] for further treatment and evaluation for her pelvic fracture. She had been on peritoneal dialysis. However, approximately 1 month ago, she had a tunneled Barrington catheter placed for peritoneal dialysis and which she has been on for approximately 1 month. She said the dialysis was going well for a while; however, she said lately that she notices that she gets achy after her dialysis is completed. She states, as I was talking to her in the room, she is getting achy again like she feels when she is getting dialysis. On December 18 when she was admitted for her pelvic fracture, her white blood count was 18.4, her hemoglobin was 11.2, platelet count was 520,000, segs were 83%. Her white blood count persistently has been elevated until January 17, her white blood count was down to 10 and her platelets were down to 488,000. On January 18, her white count was 9.4, hemoglobin was down to 6.9, and platelet count was 324,000. Her white count did increase again on January 20 to 13,000, hemoglobin was 7.1, platelets were 444,000 with a high normal neutrophil count at 79%. Since January 20, her white blood count has been persistently elevated in the approximately 15,000 range on the automated diff with increase in neutrophils and there is a flag for some immature cells, but the manual diff has not been performed. The patient started developing nausea and feeling poorly last Friday and Friday and she had a fever of over 101 with chills and she was brought to the emergency room at that time. A UA was performed which was unremarkable. Blood cultures were obtained. She was started on Zosyn and vancomycin on January 25. On admission, her white count was 15.3, her hemoglobin was 7.1, and platelet count was 312,000 with 86% segs. On January 26, white count was 14.2, PATIENT'S NAME: YVON ZIMMERMAN [facility] AGE: 56 Y [address] ROOM: [place] [address] LOCATION: GPCU ADMIT DATE: 01/26/2017 Consultation DISCHARGE DATE: FAMILY PHYSICIAN: MILIND MARTINEZ MD ATTENDING PHYSICIAN: Joy LOWE hemoglobin 6.6, platelet count 298,000, 87% segs; and on January 27, white count was 15.6, hemoglobin 6.8, platelet count 300,000, neutrophils were 84%. CRP on 01/25 was 3.66. CRP was elevated at 3.66, normal should be less than 0.9. Ultrasound showed a mildly dilated common bile duct, but otherwise unknown etiology. The patient's T-max was 99.3 and that was at 3 p.m. on 01/26. She has been afebrile the past 24 hours. She still is having some mild nausea. She says the antiemetics help a little bit. Because of her anemia, she is going to have an EGD tomorrow. She had a pleural effusion that was tapped on 01/18/2017 which was transudate and there was no malignancy and the cultures were negative. PAST MEDICAL HISTORY: She has type 1 diabetes, but she is a brittle diabetic, hypertension, end- stage renal disease on hemodialysis currently, new pelvic fracture and on bed rest for approximately the past 6 weeks. Hypothyroidism, her TSH on 01/25 was 90. With end-stage renal disease, she is on the kidney transplant list. SOCIAL HISTORY: The patient is a nonsmoker and nondrinker. She currently resides in a longterm while she is recovering from her pelvic fractures. She lives with her son and her . FAMILY HISTORY: Noncontributory. REVIEW OF SYSTEMS: As per the HPI. She has had some soft stools. She does not really know if they are formed at all because she is on complete bed rest and she is lifted off the commode and she has not been able to look at her stools. She is unsure about melena, hematochezia, although the son said that her stools the other day were noted to be greenish. She has been tired and had these aches after dialysis and currently now. She denies any abdominal pain, shortness of breath, or cough. PHYSICAL EXAMINATION: VITAL SIGNS: Temperature is 98.5, pulse 89, respirations 16, blood pressure is 172/81, sats 94% on room air. GENERAL: The patient is a pleasant, alert, oriented, pale female who is in no distress. HEENT: No scleral icterus is present. Extraocular muscles appear to be intact. Mouth is clear of lesions. PATIENT'S NAME: YVON ZIMMERMAN [facility] AGE: 56 Y [address] ROOM: [address] [address] LOCATION: GPCU ADMIT DATE: 01/26/2017 Consultation DISCHARGE DATE: FAMILY PHYSICIAN: MILIND MARTINEZ MD ATTENDING PHYSICIAN: Joy LOWE NECK: Supple without adenopathy or thyromegaly. Trachea is in the midline. Her Barrington catheter is tunneled in her left subclavian area and there is no erythema warranted, tenderness associated. HEART: Regular without murmur. LUNGS: Clear anteriorly. ABDOMEN: Bowel sounds are present. Soft and nontender. There is no organomegaly or masses that are palpable. EXTREMITIES: She has no peripheral edema or inguinal adenopathy. SKIN: There is no skin rash. NEURO: No focal neurologic deficits noted. Cranial nerves appear to be intact. IMPRESSION: 1. Mildly elevated white blood count with a recent history of fever and chills with fever a little over 24 hours ago, still with nausea with really unknown etiology. 2. Anemia, likely multifactorial from end-stage renal disease and probably hypothyroidism, could be iron deficiency as well. RECOMMENDATIONS: We will get a CBC with manual differential to see if she has any population of immature cells. I think that this is likely inflammatory with increase in her CRP, her pleural effusions, her nausea and achiness. Sometimes coag-negative staph infections on catheters can cause people just to feel poorly, have nausea, aches, etc. Her white blood count has been mildly elevated for the most part since she had a dialysis catheter placed. We will repeat her TSH. We will check a B12, folate. We will also check iron studies and a soluble transferrin receptor to see if we can try to figure out a contributory cause for her anemia. We will follow along. HARRISON BROWN MD CML/modl /[id number] d: 01/27/174 t: 02/13/17 1649, CONSULTATION REPORT
--- NOTE | ~2017-01-25 | HP ---
PATIENT'S NAME: YVON ZIMMERMAN [facility] AGE: 56 Y [address] ROOM: [address] [address] LOCATION: [facility] ADMIT DATE: 01/26/2017 History & Physical DISCHARGE DATE: FAMILY PHYSICIAN: MILIND MARTINEZ MD ATTENDING PHYSICIAN: Joy LOWE DATE OF SERVICE: CHIEF COMPLAINT: Fever and nausea with vomiting. HISTORY OF PRESENT ILLNESS: The patient is a 56-year-old female with past medical history of ESRD, insulin- dependent diabetes mellitus, and recent history of pelvic fracture, who comes in from [facility] with fever and nausea, vomiting. The patient was recently admitted to our hospital and discharged on after she was initially admitted for acute encephalopathy secondary to hypoglycemia. During this stay, the patient was noted to have a HCAP and was treated with antibiotic and was discharged on Levaquin. The patient reports that since discharge she has not been feeling well, and has been having multiple episodes of nausea, vomiting and also a few episodes of diarrhea. She denies any hematemesis or tarry stool or bright red blood per rectum. The patient also denies chest pain, shortness of breath, productive cough, abdominal pain, and headache. The patient reports that especially today after dialysis she felt feverish, which was associated with nausea and vomiting. Of note, the patient was admitted this month initially for pelvic fracture and was seen by Dr. Francis who recommended nonoperative and expected the pelvic fracture to heal by itself; however, if does not improve with possible pinning in the near future. As stated above, the patient was admitted again with acute encephalopathy and treated for HCAP. During that stay, the patient was noted to have left pleural effusion and was drained, and fluid analysis was transudative and there was no bacterial growth seen. During her last stay, the patient was also noted to be hypoglycemic, and her long-acting detemir was discontinued and currently on sliding scale insulin without any episodes of hypoglycemia since the patient has been on sliding scale. PAST MEDICAL HISTORY: 1. ESRD. 2. Type 1 diabetes mellitus. 3. Hypothyroidism. 4. Hypertension. 5. Pelvic fracture. PAST SURGICAL HISTORY: PATIENT'S NAME: YVON ZIMMERMAN [facility] AGE: 56 Y [address] ROOM: [place] [address] LOCATION: GPCU ADMIT DATE: 01/26/2017 History & Physical DISCHARGE DATE: FAMILY PHYSICIAN: MILIND MARTINEZ MD ATTENDING PHYSICIAN: Joy LOWE Hip surgery, peritoneal dialysis, and . Also tunneled dialysis recently placed, currently using tunneled dialysis for dialysis. FAMILY HISTORY: Mother has adrenal cancer. Dad has tumor of the back. SOCIAL HISTORY: Currently, she is staying in the care home. She denies smoking and drinking. MEDICATIONS: Currently being reconciled. REVIEW OF SYSTEMS: All systems have been reviewed and are negative except for what I mentioned in the HPI. PHYSICAL EXAMINATION: VITAL SIGNS: Temperature 98.9, blood pressure 184/86, pulse of 107, respiratory rate 16, and saturating 92% on room air. GENERAL APPEARANCE: The patient appears pale, in no acute distress. Somewhat cachectic. HEAD: Normocephalic, atraumatic. EYES: Extraocular muscles intact. NOSE: No nasal discharge. ORAL CAVITY: Dry oral mucosa. EARS: No ear discharge. HEART: Tachycardic. No murmurs, rubs, or gallops heard. CHEST: Mild decreased breath sounds in the left lower lung field. No wheezing, rales, or rhonchi heard. ABDOMEN: Soft, nontender, nondistended. The patient has PD catheter in place. SKIN: Warm to touch. BEAN WEIGHER: Alert and oriented x3. Motor and sensory grossly intact. MUSCULOSKELETAL: No obvious joint effusion noted. LABORATORY DATA: PH of 7.49, pCO2 of 37, bicarb of 28.2. Lactate of 1.5. Troponin x1 negative. BNP 27,676. White blood cell count of 15, hemoglobin 7.1, MCV of 89, platelet of 312. BUN 10, creatinine 2.1, sodium of 138, and glucose of 140. Albumin 2.5, AST 35, ALT 27, alkaline phosphatase of 211, and bilirubin of 0.4. CRP of 3.66. INR of 1. Procal of 2.61. ASSESSMENT AND PLAN: 1. Severe sepsis, diagnosed in the ED at time 0030 hours. The patient is PATIENT'S NAME: YVON ZIMMERMAN [facility] AGE: 56 Y [address] ROOM: [place] [address] LOCATION: GPCU ADMIT DATE: 01/26/2017 History & Physical DISCHARGE DATE: FAMILY PHYSICIAN: MILIND MARTINEZ MD ATTENDING PHYSICIAN: Joy LOWE presenting with elevated white blood cells and procalcitonin, tachycardic, and fever at the care home. Etiology currently unknown. The patient had a history of healthcare-associated pneumonia. Chest x- ray shows somewhat stable left lower lobe pleural effusion. Working diagnoses include healthcare-associated pneumonia versus bloodstream infection secondary to hemodialysis catheter versus chronic cholecystitis as recent CT abdomen shows chronic changes on the gallbladder. The patient already received 1 L of bolus IV fluid. We will give 800 mL of IV fluid to give the patient 30 mL/kg IV fluid. The patient is also dehydrated due to recent nausea, vomiting, and diarrhea. We will start the patient on broad-spectrum antibiotics of vancomycin and Zosyn. To acquire TTE to investigate for endocarditis. We will get a right upper quadrant ultrasound for further evaluation of gallbladder. Also, acquire a CT chest without contrast to further investigate the recent diagnosis of pneumonia, to assess more for worsening or abscess. Blood culture and urine culture are pending. 2. Dehydration secondary to nausea and vomiting. We will treat underlying etiology. We will treat with IV fluid. 3. Diarrhea. The patient reports a few episodes of diarrhea. We will check a Clostridium difficile. 4. Brittle diabetes type 1. The patient recently was taken off her long- acting due to hypoglycemia. We will continue the patient's sliding scale. We will also acquire cortisol level at 5:00 in the morning. 5. Hypothyroidism. Continue medication. 6. Hypertension. Continue blood pressure medication. 7. End-stage renal disease. Dialysis, Friday, , and Friday. Consult quick mixer operator in the morning. 8. Moderate protein-calorie malnutrition. 9. Anemia. The patient has normocytic anemia. Etiology secondary to chronic kidney disease and might also have component of iron deficient anemia. At one point, the patient was seen by GI on one of her last 2 admissions. No EGD and colonoscopy were done. We will type and screen and follow the patient closely. 10. Pelvic fracture. The patient is currently non-weightbearing. The patient to follow up with Dr. Francis for possible pinning at one point. Greater than 70 minutes was spent on the patient's care, assessment and plan, and was discussed with the patient and family. Greater than 50% of the time was spent on direct patient care. The patient's questions and family's questions were answered with satisfaction. We will admit the patient for severe sepsis. Code status discussed on admission. CODE STATUS: PATIENT'S NAME: YVON ZIMMERMAN [facility] AGE: 56 Y [address] ROOM: [place] [address] LOCATION: [facility] ADMIT DATE: 01/26/2017 History & Physical DISCHARGE DATE: FAMILY PHYSICIAN: MILIND MARTINEZ MD ATTENDING PHYSICIAN: Joy LOWE Full code. MD RAYMUNDO HUSAIN/modl /[id number] D: [id number] T: [id number] HISTORY & PHYSICAL
--- NOTE | ~2017-01-25 | DS ---
PATIENT'S NAME: YVON ZIMMERMAN [facility] AGE: 56 Y [address] ROOM: [address] [address] LOCATION: GPCU ADMIT DATE: 01/26/2017 Discharge Summary DISCHARGE DATE: 01/31/2017 FAMILY PHYSICIAN: Jatin Newton MD ATTENDING PHYSICIAN: Joy Bee PRINCIPAL DIAGNOSES: 1. Responsiveness. 2. Sepsis secondary to health care-associated pneumonia. 3. Bacterial pneumonia. 4. Gastroparesis. 5. Brittle diabetes. 6. Anemia, requiring transfusion. 7. Severe hypothyroidism. HOSPITAL COURSE: Please refer to the admitting history and physical by Dr. Cook for a detailed history on initial presentation. This is a 56-year-old female with known history of brittle diabetes and gastroparesis, who presented initially with unresponsiveness and was noted to have blood sugars in the 50s and this has been corrected and recovered appropriately. The patient on further evaluation was noted to have signs and symptoms of sepsis, and on evaluation with a CT scan, was noted to have lung consolidation consistent with pneumonia. The patient was started on broad-spectrum antibiotics on admission with vancomycin and Zosyn, and these were later narrowed down to Levaquin and has continued to improve clinically. The patient also had symptoms of intractable nausea and vomiting, which required GI evaluation and had an EGD done and findings were suggestive of severe gastroparesis. The patient was treated with scheduled Reglan 3 times a day with meals for 48 hours with significant improvement in her symptoms and these are later changed to p.r.n. and she is to continue to take Reglan as needed going forward and she has done well with her oral intake with these adjustments. The patient's blood sugars were also very labile during her hospitalization and this is primarily due to her changing feeding habits, but over the past 48 hours, blood sugars have been fairly okay controlled since her p.o. intake had been consistent and stable while on Reglan. At this point, I will discharge the patient on Levemir 10 units nightly and sliding scale insulin with short- acting NovoLog going forward. The patient today is in good spirits, was seen after dialysis, and she seemed to have tolerated this well. Blood pressures are running a little on the high side and adjustment to her blood pressure medications are made and this is to be followed up with her primary care physician as outpatient. Overall, the patient is in good spirits today. PHYSICAL EXAMINATION: VITAL SIGNS: She is afebrile. Vital signs stable. GENERAL: She is awake, alert, and oriented x3, in no acute distress. CHEST: Coarse breath sounds but clear. PATIENT'S NAME: YVON ZIMMERMAN [facility] AGE: 56 Y [address] ROOM: [place] [address] LOCATION: GPCU ADMIT DATE: 01/26/2017 Discharge Summary DISCHARGE DATE: 01/31/2017 FAMILY PHYSICIAN: Jatin Newton MD ATTENDING PHYSICIAN: Joy Bee HEART: S1, S2. Regular rate and rhythm. ABDOMEN: Soft, nontender, and nondistended. EXTREMITIES: Without edema. NEURO: Grossly nonfocal. MEDICATIONS: Per AUG includin. Levemir 10 units nightly. 2. Levaquin, renally adjusted to finish an equivalent of 10 days' course total. 3. Reglan 10 mg q.8 hours p.r.n. DISPOSITION: Back to SNF and will follow up with primary care physician in 1 week and will continue her hemodialysis as scheduled. Greater than 30 minutes were spent in discharge planning and facilitating. MD KISHA HI/jessica /[id number] d: 02/01/17 0018 t: 02/03/17 1426, DISCHARGE SUMMARY
--- NOTE | ~2017-01-25 | CON ---
PATIENT'S NAME: YVON ZIMMERMAN [facility] AGE: 56 Y [address] ROOM: [place] [address] LOCATION: GPCU ADMIT DATE: 01/26/2017 Consultation DISCHARGE DATE: 01/31/2017 FAMILY PHYSICIAN: Jatin Newton MD ATTENDING PHYSICIAN: Joy Bee DATE OF CONSULTATION: 01/26/2017 REFERRING PHYSICIAN: JONATHAN KENT REASON FOR CONSULTATION: Nausea and vomiting. Slight decrease in the patient's hemoglobin. HISTORY OF PRESENT ILLNESS: This is a pleasant 56-year-old female with past medical history of end-stage renal disease, insulin-dependent diabetes mellitus, and recent history of pelvic fracture. The patient was transported to [facility] from [facility] with fever, nausea, and vomiting. The patient had been recently hospitalized and discharged on after she was initially admitted with acute encephalopathy secondary to hypoglycemia. The patient at that time was placed on an antibiotic for HCAP being Levaquin. The patient reports that since discharge, she has not been feeling well. She has had multiple issues with nausea, vomiting as well as a few episodes of diarrhea. She denies any blood in the stool; black, tarry, or bright red blood per rectum. She did undergo a colonoscopy in September 2016, at the outside facility that was negative. The patient at the time of examination denied any acute chest pain, chest pressure, shortness of breath, fever, chills, abdominal pain, or weight loss. The patient has been on PPI therapy prior to admission and has been stable. She denies any history of upper endoscopy. PAST MEDICAL HISTORY: End-stage renal disease, type 1 diabetes mellitus, hypothyroidism, hypertension, and history of pelvic fracture. PAST SURGICAL HISTORY: Hip surgery, peritoneal dialysis, and . She also had a tunneled dialysis catheter recently placed. FAMILY HISTORY: Mother has adrenal cancer. The patient's father had tumor of the back. SOCIAL HISTORY: The patient currently resides at [facility]. She denies any ongoing toxic habits. MEDICATIONS: PATIENT'S NAME: YVON ZIMMERMAN [facility] AGE: 56 Y [address] ROOM: [place] [address] LOCATION: GPCU ADMIT DATE: 01/26/2017 Consultation DISCHARGE DATE: 01/31/2017 FAMILY PHYSICIAN: Jatin Newton MD ATTENDING PHYSICIAN: Joy Bee Please refer to the medication administration record. REVIEW OF SYSTEMS: All-point review of systems was completed, all were negative except for those identified in the History of Present Illness. PHYSICAL EXAMINATION: GENERAL: A pleasant, 56-year-old female, who appears to be in no acute distress. VITAL SIGNS: Temperature 98.9, blood pressure 184/86, pulse of 107, respiratory rate of 16, and oxygen saturation is 92% on room air. SKIN: [place], warm, and dry. No jaundice. HEENT: Head is normocephalic and atraumatic. Pupils are equal, round, and reactive to light. Sclerae are clear. Nonicteric. Oral mucosa is slightly dry. NECK: Soft and supple. CARDIOVASCULAR: Tachycardic. Normal S1 and S2. RESPIRATORY: Respirations are even and unlabored. LUNGS: Clear to auscultation. Slightly diminished in the left lower lobe. ABDOMEN: Soft, round, nontender, and nondistended. PD catheter is in place. MUSCULOSKELETAL: No muscle weakness or atrophy. EXTREMITY: No edema. NEUROLOGIC: Grossly nonfocal. LABORATORY DATA AND DIAGNOSTIC DATA: Lactate on admission was 1.5. White blood cell was 15, hemoglobin of 7.1, MCV of 89, and platelets of 312. BUN of 10 and creatinine of 2.1. Sodium 138, glucose of 140, albumin of 2.5, AST of 35, ALT of 27, alkaline phosphatase of 211, and bilirubin was normal at 0.4. CRP was elevated at 3.66. INR is 1. Procalcitonin of 2.61. ASSESSMENT AND PLAN: Again, this is a pleasant 56-year-old female, who was admitted with severe sepsis, presenting with elevated white blood cell count, procalcitonin, and tachycardic. The patient also was noted to have fever at the long term. The patient does have a history of healthcare-associated pneumonia. As well, we were asked to see in consultation for continued complaints of nausea, vomiting as well as slight decrease in hemoglobin. In lieu of the patient's diabetic history, we do suspect possible gastroparesis relating to her nausea and vomiting. She also is on chronic narcotic use which may be assisting in the problem. At this time, we do recommend high-dose PPI. We will discontinue her Pepcid and add Protonix 40 mg twice daily. We will also recommend an upper endoscopy as there is no prior history to this when feasible. C. diff is currently pending in regard to the patient's diarrhea as well as a recent antibiotic use, as we will wait for these results. Further PATIENT'S NAME: YVON ZIMMERMAN [facility] AGE: 56 Y [address] ROOM: [address] [address] LOCATION: [facility] ADMIT DATE: 01/26/2017 Consultation DISCHARGE DATE: 01/31/2017 FAMILY PHYSICIAN: Jatin Newton MD ATTENDING PHYSICIAN: Joy Bee recommendations to be given over the course of the patient's hospitalization. RICH INFANTE APRN FOR MD MARY JO LEE/modl /[id number] d: 02/04/179 t: 02/11/17 08, CONSULTATION REPORT
[~2017-01-25 23:27] MED LIST changes: -ASPIRIN LO-DOSE81 MG PO; -VITAMIN D250000 UNIT PO
[2017-01-25 23:46] LABS: BASOPHIL % 0.1 %; BICARBONATE 28.2 mmol/L (18.0-23.0); EOSINOPHIL % 0.1 %; HEMATOCRIT 21.9 % (33.0-46.0); IMMATURE GRANULOCYTE # 0.1 K/uL (0.0-0.3); IMMATURE GRANULOCYTE % 0.9 %; LACTATE 1.5 mEq/L (0.50-1.60); LYMPHOCYTE % 6.7 %; MONOCYTE # 0.9 K/uL (0.0-1.0); MONOCYTE % 5.9 %; MPV 9.1 fl (9.4-12.4); NEUTROPHIL # (ANC) 13.2 K/uL (1.8-7.8); NEUTROPHIL % 86.3 %; NRBC % 0 /100WBC (0-0.00); PCO2 37 mmHg (35-45); PO2 138 mmHg (80-90); RBC 2.46 M/uL (3.50-5.50); WBC 15.3 K/uL (4.0-11.0)
[2017-01-25 23:49] LABS: HEMOGLOBIN 7.1 g/dL (10.0-15.0); MCH 28.9 pg (27.0-34.0); MCHC 32.4 gm/dL (32.0-36.5); PLATELET COUNT 312 K/uL (150-450); RDW-CV 19.9 % (11.9-14.6)
[2017-01-25 23:55] LABS: BILIRUBIN URINE NEGATIVE (NEGATIVE); BLOOD URINE NEGATIVE /UL (NEGATIVE); COLOR URINE YELLOW (YELLOW); GLUCOSE URINE 1000 mg/dL (NEGATIVE); KETONE URINE 15 mg/dL (NEGATIVE); LEUKOCYTES URINE NEGATIVE /UL (NEGATIVE); NITRITE URINE NEGATIVE (NEGATIVE); PROTEIN URINE 500 mg/dL (NEGATIVE); SPEC GRAVITY URINE 1.005 (1.003-1.035); TURBIDITY URINE CLEAR (CLEAR); UROBILINOGEN URINE NORMAL (NORMAL)
[2017-01-25 23:57] LABS: PROTIME 10.5 SECONDS (9.8-11.4); PTT 24 SECONDS (25-32)
[2017-01-26 00:01] LABS: AMORPHOUS URINE 1+ (NEGATIVE); BACTERIA URINE NEGATIVE (NEGATIVE); EPITHELIAL URINE 0-2 #/HPF (NEGATIVE); RBC URINE 0-2 #/HPF (NEGATIVE)
[2017-01-26 00:08] LABS: ALBUMIN 2.5 gm/dL (3.5-5.0); ALK PHOS 211 IU/L (33-138); ALT 27 IU/L (12-78); AST 35 IU/L (10-40); BLOOD UREA NITROGEN 10 mg/dL (6-24); CALCIUM 8.5 mg/dL (8.5-10.5); CHLORIDE 101 mMol/L (96-110); CO2 24 mMol/L (22-32); CPK 28 IU/L (21-215); CREATININE 2.1 mg/dL (0.5-1.1); SODIUM 138 mMol/L (135-145); TOTAL PROTEIN 6.8 g/dL (6.0-8.4)
[2017-01-26 00:09] LABS: TOTAL BILIRUBIN 0.4 mg/dL (0.0-1.5)
[2017-01-26] MEDS ORDERED: ASPIRIN LO-DOSE81 MG PO (04:01)
[2017-01-26] MEDS ORDERED: TUMS REGULAR ST1 TAB PO (04:02)
[2017-01-26] MEDS ORDERED: VITAMIN D250000 UNIT PO (04:07)
[2017-01-26 04:14] LABS: EOSINOPHIL % 0.1 %; HEMATOCRIT 20.7 % (33.0-46.0); IMMATURE GRANULOCYTE # 0.1 K/uL (0.0-0.3); IMMATURE GRANULOCYTE % 0.9 %; LYMPHOCYTE # 0.8 K/uL (0.8-4.0); LYMPHOCYTE % 5.9 %; MCH 29.2 pg (27.0-34.0); MCHC 31.9 gm/dL (32.0-36.5); MCV 91.6 fl (83.0-98.0); MONOCYTE # 0.8 K/uL (0.0-1.0); MONOCYTE % 5.9 %; MPV 9.4 fl (9.4-12.4); NEUTROPHIL # (ANC) 12.4 K/uL (1.8-7.8); NEUTROPHIL % 87.2 %; NRBC % 0.1 /100WBC (0-0.00); PLATELET COUNT 298 K/uL (150-450); RBC 2.26 M/uL (3.50-5.50); RDW-CV 19.8 % (11.9-14.6); WBC 14.2 K/uL (4.0-11.0)
[2017-01-26 04:24] LABS: HEMOGLOBIN 6.6 g/dL (10.0-15.0)
--- NOTE | 2017-01-26 04:55 | NUR ---
Patient was discharged back to [facility] this last week. Patient has complained of not feeling well since. Has been vomiting the last 24 hours and began having a fever at [facility]. Staff gave patient Tylenol and sent to ER to be evaluated. Upon arrival to ER, patient's WBC was 15.3, ProCal was 2.61, ProBNP was 44802, and Lactate was also elevated. Patient was given 1800ml fluid bolus and admitted to PCU. History includes hypertension, Type I diabetes, and Kidney Failure. Patient is currently recieving hemodialysis. Last recieved on Friday. Still has peritoneal dialysis line to left abdomen. Due to recent fall and "odd twisting" accident, patient has multiple pelvis/hip fractures and continues as non-weight bearing. Vital signs upon admission to PCU: HR 104. Temp 98.6. RR 16. O2 94% RA. BP 166/74.
[2017-01-26 05:17] LABS: POTASSIUM 4.3 mMol/L (3.7-5.1)
[2017-01-26 05:18] LABS: ALBUMIN 2.3 gm/dL (3.5-5.0); ANION GAP 19.3 (10.0-19.0); CALCIUM 7.7 mg/dL (8.5-10.5); CREATININE 2.2 mg/dL (0.5-1.1); TOTAL BILIRUBIN 0.7 mg/dL (0.0-1.5); TOTAL PROTEIN 6.2 g/dL (6.0-8.4)
--- NOTE | 2017-01-26 15:12 | NUR ---
Significant event: A&Ox3. HR 90-100's. On RA. LLL is diminished with fine crackles, clear and diminished in all other lobes. Bowel sounds more active this afternoon, had small BM. Nausea throughout shift, zofran given x 2, had small emesis bile/green, reglan given at 1445. Refused to eat breakfast and lunch, is sipping on ensure. Hemoglobin is 6.6, per we are not to infuse blood unless absolutley necessary, no blood given this shift. GI saw patient, to do EGD when feasible. IV zosyn given. Patient up to chair several times this shift, with lift. CT of chest and KUB done this shift. Follow Up: Continue current POC. To be M-W-F dialysis while inpatient.
[2017-01-27 04:12] LABS: BASOPHIL % 0.2 %; EOSINOPHIL % 0.3 %; HEMATOCRIT 21.7 % (33.0-46.0); IMMATURE GRANULOCYTE # 0.2 K/uL (0.0-0.3); LYMPHOCYTE % 6.2 %; MCH 28.9 pg (27.0-34.0); MCHC 31.3 gm/dL (32.0-36.5); MCV 92.3 fl (83.0-98.0); MONOCYTE # 1.2 K/uL (0.0-1.0); MONOCYTE % 7.4 %; MPV 9.4 fl (9.4-12.4); NEUTROPHIL # (ANC) 13.2 K/uL (1.8-7.8); NEUTROPHIL % 84.9 %; NRBC % 0 /100WBC (0-0.00); PLATELET COUNT 300 K/uL (150-450); RBC 2.35 M/uL (3.50-5.50); RDW-CV 21.2 % (11.9-14.6); WBC 15.6 K/uL (4.0-11.0)
[2017-01-27 04:13] LABS: HEMOGLOBIN 6.8 g/dL (10.0-15.0)
[2017-01-27 04:31] LABS: ALBUMIN 2.5 gm/dL (3.5-5.0); CALCIUM 8.5 mg/dL (8.5-10.5); TOTAL PROTEIN 6.5 g/dL (6.0-8.4)
[2017-01-27 04:32] LABS: CREATININE 3.4 mg/dL (0.5-1.1); TOTAL BILIRUBIN 0.5 mg/dL (0.0-1.5)
--- NOTE | 2017-01-27 05:26 | NUR ---
Significant Event: Patient alert and oriented x3. Flat affect. Sleepy this shift. Vital signs stable. On RA. Non-weight bearing. Moved to full lift room this shift. Complained of abdominal pain throughout shift. Reglan x1 and Zofran x1 given with little relief to patient. Very little oral intake this shift. Refused food. Small sips at times. Hemoglobin 6.8 this morning. Little urine output. Patient calm and cooperative with all cares. Follow up: Dialysis today. TTE today?
--- NOTE | 2017-01-27 11:26 | NUR ---
0945 Came by see Lis, but per her RN Julio, she is down in dialysis right now so she won't be back to her room for a bit yet. I also ran into her son in the hallway. Let him know that I would be following again from a CM standpoint. He was fine with this. He also states that he and his dad have some questions about medical POA paperwork and how to get that filled out. Son states that he will have his dad get ahold of me and have my answer the questions and then also help them find someone to be a notary for them as well. Let him know that this was fine and I would plan on meeting with him and his dad later today or tomorrow either in Declan' room or over the phone. CM to continue to follow and assist. Plan return back to [facility] when medically stable.
--- NOTE | 2017-01-27 15:33 | NUR ---
Significant Event: VSS AND RA. DENIES NEED FOR PAIN MED. TO HD TODAY, REMOVED 3L, PLAN FOR HD AGAIN ON FRIDAY. KELLIE BROWN AND DOLORES CONSULTS-NOTIFIED. LIFTED UP TO THE CHAIR THIS AFTERNOON; HAD 2 MOD, SOFT BMS. BS 400S-80S. Follow up: CONTINUE PLAN OF CARE.
--- NOTE | 2017-01-28 03:30 | NUR ---
Significant Event: A/0X3. RESTED IN BED ALL OF SHIFT. REFUSED BEING REPOSITIONED Q 2 HRS. AFEBRILE. VSS ON RA. DENIES PAIN. STARTED NEW IV TO L) AC SL. CONTINUE WITH IV ANTIBIOTICS. DIALYSIS CATHETER TO L) SUBCLAVIAN SL. WAS INCONTINENT OF URINE X1. NO BM THIS SHIFT. DIDNT EAT MUCH THIS SHIFT. NO C/O OF N/V. BEEN NPO SINCE MIDNIGHT FOR EGD THIS AM. PERMITS PRINTED BUT NOT SIGNED. PATIENT STATES SHE DOESNT REALLY REMEMBER DOCTOR GOING OVER THE R/B AND DOESNT FEEL COMFORTABLE SIGNING THEM. Follow up: CONTINUE WITH PLAN OF CARE.
[2017-01-28 04:57] LABS: HEMATOCRIT 21.2 % (33.0-46.0); MCHC 32.5 gm/dL (32.0-36.5); MCV 92.2 fl (83.0-98.0); MPV 9.9 fl (9.4-12.4); PLATELET COUNT 251 K/uL (150-450); RDW-CV 21.5 % (11.9-14.6); WBC 12.6 K/uL (4.0-11.0)
[2017-01-28 05:00] LABS: HEMOGLOBIN 6.9 g/dL (10.0-15.0)
[2017-01-28 05:17] LABS: ALBUMIN 2.2 gm/dL (3.5-5.0); ANION GAP 17.3 (10.0-19.0); CALCIUM 7.7 mg/dL (8.5-10.5); CREATININE 2.5 mg/dL (0.5-1.1); POTASSIUM 4.3 mMol/L (3.7-5.1); TOTAL BILIRUBIN 0.6 mg/dL (0.0-1.5)
[2017-01-28 05:30] LABS: LYMPHOCYTE # 1.4 K/uL (0.8-4.0); LYMPHOCYTE % 11 %; MONOCYTE # 0.3 K/uL (0.0-1.0); SEGMENTED NEUTROPHIL % 87 %
--- NOTE | 2017-01-28 09:27 | NUR ---
6266 Called in an update to Dorcas at [facility], [phone]. Let her know that Lis would most likely be here with us for a bit. She is getting dialysis, on IV Abxs and also going to be getting an EGD today. Will continue to keep her updated and when Lis is medically cleared, CM will get a van time set up for transport back to them. CM to continue to follow and assist.
--- NOTE | 2017-01-28 16:56 | NUR ---
Significant Event: pt had EGD this am, biopsys done. SBP on high side today. Lift to chair this afternoon, no wt bear. ZOfran last at 1650. Pt not eating/drinking much. BG elevated this am, down to 132 for lunch. Pt son here with her today. Follow up:
[2017-01-29 04:11] LABS: BASOPHIL % 0.1 %; EOSINOPHIL # 0.1 K/uL (0.0-0.5); HEMATOCRIT 20.8 % (33.0-46.0); IMMATURE GRANULOCYTE # 0.1 K/uL (0.0-0.3); LYMPHOCYTE # 1.3 K/uL (0.8-4.0); LYMPHOCYTE % 10.8 %; MCH 30.4 pg (27.0-34.0); MCHC 32.7 gm/dL (32.0-36.5); MCV 92.9 fl (83.0-98.0); MONOCYTE # 1.1 K/uL (0.0-1.0); MONOCYTE % 8.9 %; MPV 9.5 fl (9.4-12.4); NEUTROPHIL # (ANC) 9.6 K/uL (1.8-7.8); NEUTROPHIL % 78.2 %; NRBC % 0 /100WBC (0-0.00); PLATELET COUNT 239 K/uL (150-450); RBC 2.24 M/uL (3.50-5.50); RDW-CV 22.2 % (11.9-14.6); WBC 12.3 K/uL (4.0-11.0)
[2017-01-29 04:12] LABS: HEMOGLOBIN 6.8 g/dL (10.0-15.0)
[2017-01-29 04:35] LABS: ALBUMIN 2.1 gm/dL (3.5-5.0); ANION GAP 18.7 (10.0-19.0); CALCIUM 7.7 mg/dL (8.5-10.5); CREATININE 3.5 mg/dL (0.5-1.1); POTASSIUM 3.7 mMol/L (3.7-5.1); TOTAL PROTEIN 5.8 g/dL (6.0-8.4)
--- NOTE | 2017-01-29 04:38 | NUR ---
Significant Event: A/0X3. WAS UP IN CHAIR BEGINNING OF SHIFT. FULL LIFT BACK TO BED. REFUSED BEING REPOSITIONED AT TIMES. AFEBRILE. VSS ON RA. DENIES PAIN. FENTANYL PATCH TO R) UPPER BACK INTACT. IV TO L) AC SL. CONTINUE WITH IV ZOSYN. DIAYSIS CATHETER T0 L) SUBCLAVIAN SL. PATIENT WILL HAVE DIAYSIS THIS AM. INCONTINENT OF URINE AND BOWEL X1 THIS SHIFT. SEND DOWN A STOOL SAMPLE TO CHECK FOR C.DIFF. RESULTS PENDING. BLOOD SUGARS WERE ANY WHERE FROM 80-180. GAVE AMPULE OF DEXTROSE X2, 4 DEXTROSE TABS, ORANGE JUICE X5, CRACKERS/PB AND ORANGE SHERBURT. BEEN RECHECKING EVERY HOUR. Follow up: CONTINUE WITH PLAN OF CARE
[2017-01-29 04:39] LABS: TOTAL BILIRUBIN 0.3 mg/dL (0.0-1.5)
--- NOTE | 2017-01-29 11:50 | NUR ---
1115 Stopped by to see Lis, she was down in dialysis so I will come by and see her later.
--- NOTE | 2017-01-29 17:18 | NUR ---
Significant Event: A/O. SBPs 150s-190s. Denies pain this shift. up to chair with full lift. Dialysis today with 3.2L off. Incontinent of bowel and bladder. AC/HS accuchecks. Poor appetite. Follow up:
--- NOTE | 2017-01-30 04:31 | NUR ---
A/O. HR 80-90s. SBP 120-170s. INCRESED NORAVASC AND LOSARTAN. ROOM AIR. FULL LIFT UP TO CHAIR. HELD LEVIMIR AT HS FOR BLOOD SUGAR OF 130. AT 0300 SPOT CHECK SUGAR PATIENT REQUEST WAS 343. NOVOLOG 9 UNITS GIVEN. DENIES PAIN. INCON BMx1. NO VOIDS.
[2017-01-30 05:19] LABS: BASOPHIL % 0.2 %; EOSINOPHIL # 0.1 K/uL (0.0-0.5); EOSINOPHIL % 0.8 %; HEMOGLOBIN 9.6 g/dL (10.0-15.0); IMMATURE GRANULOCYTE # 0.1 K/uL (0.0-0.3); IMMATURE GRANULOCYTE % 0.7 %; LYMPHOCYTE # 1.2 K/uL (0.8-4.0); LYMPHOCYTE % 10.3 %; MCHC 32.5 gm/dL (32.0-36.5); MCV 93.4 fl (83.0-98.0); MONOCYTE # 1.2 K/uL (0.0-1.0); MONOCYTE % 9.9 %; MPV 9.3 fl (9.4-12.4); NEUTROPHIL # (ANC) 9.2 K/uL (1.8-7.8); NEUTROPHIL % 78.1 %; NRBC % 0 /100WBC (0-0.00); PLATELET COUNT 231 K/uL (150-450); RDW-CV 21.8 % (11.9-14.6); WBC 11.7 K/uL (4.0-11.0)
[2017-01-30 05:21] LABS: HEMATOCRIT 29.5 % (33.0-46.0); MCH 30.4 pg (27.0-34.0); RBC 3.16 M/uL (3.50-5.50)
[2017-01-30 05:37] LABS: ALBUMIN 2.3 gm/dL (3.5-5.0); ANION GAP 15.8 (10.0-19.0); CALCIUM 8.1 mg/dL (8.5-10.5); POTASSIUM 3.8 mMol/L (3.7-5.1); TOTAL BILIRUBIN 0.3 mg/dL (0.0-1.5); TOTAL PROTEIN 6.3 g/dL (6.0-8.4)
--- NOTE | 2017-01-30 15:38 | NUR ---
Called/Faxed in an update to [facility] to continue to follow and assist.
--- NOTE | 2017-01-30 17:01 | NUR ---
Significant Event:PT. A/O AND COOPERATIVE. FULL LIFT TO CHAIR WITH SLING. VSS. DENIES N/V OR STOMACH DISTRESS. EATING MODERATE AMOUNT OF MEALS. HEMODIALYSIS M-W-. EGD SHOWED GASTROPHORESIS. C-DIFF NEG. AC AND HS ACCUCHECKS. Follow up:
[2017-01-31 04:26] LABS: BASOPHIL % 0.2 %; EOSINOPHIL # 0.3 K/uL (0.0-0.5); EOSINOPHIL % 2.4 %; HEMATOCRIT 28.2 % (33.0-46.0); HEMOGLOBIN 9.2 g/dL (10.0-15.0); IMMATURE GRANULOCYTE # 0.1 K/uL (0.0-0.3); IMMATURE GRANULOCYTE % 0.8 %; LYMPHOCYTE # 0.9 K/uL (0.8-4.0); LYMPHOCYTE % 8.9 %; MCH 30.4 pg (27.0-34.0); MCHC 32.6 gm/dL (32.0-36.5); MCV 93.1 fl (83.0-98.0); MONOCYTE % 10.1 %; MPV 9.8 fl (9.4-12.4); NEUTROPHIL % 77.6 %; NRBC % 0 /100WBC (0-0.00); PLATELET COUNT 221 K/uL (150-450); RBC 3.03 M/uL (3.50-5.50); RDW-CV 22.2 % (11.9-14.6); WBC 10.3 K/uL (4.0-11.0)
--- NOTE | 2017-01-31 04:26 | NUR ---
A/O. HR 80-90s. SBP 140-150s. AFEBRILE. ROOM AIR. FULL LIFT NON WT BEARING. DIALYSIS TODAY. L) TUNNELED CATH. GAVE 7 UNITS OF LEMIMIR AT HS. C/O R) SHOULDER PAIN ICE APPLIED WITH RELIEF NOTED. ICON BOWLE AND BLADDER.
[2017-01-31 04:47] LABS: ALBUMIN 2.3 gm/dL (3.5-5.0); ANION GAP 15.2 (10.0-19.0); CALCIUM 8.6 mg/dL (8.5-10.5); POTASSIUM 4.2 mMol/L (3.7-5.1); TOTAL BILIRUBIN 0.3 mg/dL (0.0-1.5); TOTAL PROTEIN 6.2 g/dL (6.0-8.4)
--- NOTE | 2017-01-31 14:10 | NUR ---
Call from SHELBY Mobley that Lis was down in dialysis now, but afterwords, she would be able to go back to the SNF if I could get a van time with them. Called down to dialysis, talked with Radha, asked when Lis would be done with her dialysis today. Radha tells me that she pan be done around 1315. Radha also tells me that since she had dialysis today she won't have it again until Friday. Let her know I would pass this along to Berkley at [facility]. Called and talked with Berkley, she says that the [facility] van will be here at 1430 to milk pickup driver. Also let her know about dialysis plan. rounded around 1400 to complete the orders. I left a VM with son Joaquim updating him to the plans for his mom to return back to SNF today. Orders printed, packet started, no ID Screen needed as she is a return admission. Rylie on PCU was going to fax dismissal orders over to SNF when they were complete. Leandra RYAN has the number to call in report to [facility] before Lis leaves. CM to continue to follow and assist.
--- NOTE | 2017-01-31 17:34 | NUR ---
Significant Event: A/O x3, cooperative with cares. VSS, SBPs 140-160s, HRs 80-90s, on room air. No c/o pain. Dialysis today, 3.9 liters removed. Up to chair with mechanical lift et assist of 2. Patient dismissed to custodial; care managment notified et arragements made for custodial van to pick patient up at 230. Patient made aware of the plan upon arrival back to the floor from dialysis. Patient stated that she didn't need a ride back as family would tranpsort; patient informed that would be unsafe as she in non-ambulatory et a full lift. web assistant called at approximately 1410 et stated that patient again stated that family would transport. Nurse vistited with patient et family about the safety issues surrounding putting patient in private vehicle d/t patient being non-ambulatory et a total lift. group home van staff here to get patient et family refused to let custodial staff take patient. Nurse notified; nurse queried patient et family about reasoning. Family stated that patient didn't want to go back there et that had another facility lined up to take patient. Care management notified of situation. Care management in to visit with patient et family multiple times. Per care management family will be transferring patient to either the custodial or the med center; nursing isn't to assist with transferring patient upon dismissal d/t safety issues. Family transfers patient to w/c from recliner et then to private vehicle. Plan is for family to take patient to the custodial. Follow up:
== END 2017-01-31 17:30 | disposition disaster alternative care site (69) | DRG 871 ==
LOC: GMED 23:27 → GPCU 01-26 02:08
PROVIDERS: Emergency Medicine; Internal Medicine Hematology & Oncology; ADMIT Internal Medicine
PROC: B246ZZZ Ultrasonography of Right and Left Heart (ICD-10-PCS; principal; 2017-01-27)
PROC: 0DB68ZX Excision of Stomach, Via Natural or Artificial Opening Endoscopic, Diagnostic (ICD-10-PCS; 2017-01-28)
PROC: 0DB88ZX Excision of Small Intestine, Via Natural or Artificial Opening Endoscopic, Diagnostic (ICD-10-PCS; 2017-01-28)
DX: A41.9 Sepsis, unspecified organism (principal); N18.6 End stage renal disease; E10.22 Type 1 diabetes mellitus with diabetic chronic kidney disease; J18.9 Pneumonia, unspecified organism; E44.0 Moderate protein-calorie malnutrition; K31.84 Gastroparesis; I12.0 Hypertensive chronic kidney disease with stage 5 chronic kidney disease or end stage renal disease; E10.43 Type 1 diabetes mellitus with diabetic autonomic (poly)neuropathy; D63.1 Anemia in chronic kidney disease; E10.9 Type 1 diabetes mellitus without complications; E03.9 Hypothyroidism, unspecified; E86.0 Dehydration; R65.20 Severe sepsis without septic shock
CPT/HCPCS: J1644; J2405; J2543; J2765; J3370; J7030; J7040; J7050; P9016; Q4081

== ENCOUNTER → 2017-01-25 | Outpatient (CLI) | payer BC ==
[~2017-01-25] MED LIST changes: +ASPIRIN LO-DOSE81 MG PO; +DULCOLAX10 MG R; +EPOGEN (2020000 UNIT SUB-Q; +GLUCAGON 1 MG PE1 MG SUB-Q; +GLUCOSE4 GM PO; +LEVAQUIN500 MG PO; +MILK OF MA400 MG/5 M PO; +ONDANSETRON ODT4 MG SL; +PHOSLO667 MG PO; +TUMS REGULAR ST1 TAB PO; +TYLENOL325 MG PO; +VITAMIN D250000 UNIT PO
== END | disposition disaster alternative care site (69) ==
LOC: GAMB 23:12
DX: R11.2 Nausea with vomiting, unspecified (principal); Z79.2 Long term (current) use of antibiotics; Z79.4 Long term (current) use of insulin; Z79.82 Long term (current) use of aspirin; Z79.891 Long term (current) use of opiate analgesic; Z79.899 Other long term (current) drug therapy
CPT/HCPCS: A0425; A0429